=== PATIENT | male | born 1950 | race Caucasian/White ===

== ENCOUNTER 2021-05-12 15:05 | Inpatient (IN) ==
[2021-05-12] MEDS ORDERED: VANCOMYCIN 2,000 MG in 0.9 % SODIUM CHLORIDE 500 ML IV ONE (15:36)
[2021-05-12] MEDS ORDERED: PIPERACILLIN SODIUM/TAZOBACTAM 3.375 GM in DEXTROSE 5% IN WATER 50 ML IV ONE (15:36)
--- NOTE | 2021-05-12 15:55 | Emergency Department Note ---
Extremity Problem HPI General Chief complaint: Extremity Problem,Nontraumatic Stated complaint: cellulitis/foot ulcer Time Seen by Provider: 05/12/21 15:13 Source: patient and family Mode of arrival: wheelchair Limitations: no limitations History of Present Illness HPI Narrative: This is a 70-year-old male patient with early onset dementia and history of peripheral neuropathy and lower extremity cellulitis who presents with open and infected ulcerations of the bilateral feet. His sister is with him today who is his DPOA and helps fill in the gaps of his history. His primary care provider is Dr. Walker and they have been treating him with oral antibiotics for about 2 weeks when his symptoms started. He was initially on 5 days of Keflex and was switched to clindamycin. He developed a truncal rash about 4 days ago, but denies pruritus. He denies F/C/S. Denies nausea and vomiting. Denies shortness of breath. Patient moved here from [place] 2 years ago. He is mostly ambulatory and walks with a cane. His sister states that he was ambulating last night without issue. He is currently not on medications. Does not take Lasix. Does not routinely wear compression stockings. He is not a diabetic. She reports that the wound over the dorsal aspect first MTP on the right foot was not open last night. This morning when she looked at it the wound was clearly open and extending deep into the tissues. She noted that it smelled. She also states that the wound on his left foot at the base of the plantar aspect of the first MTP is chronic and that he frequently shaves it down. The wound on the dorsal surface of the left MTP is not new and they have been watching it. Related Data Allergies Allergy/AdvReac Type Severity Reaction Status Date / Time clindamycin Allergy Rash Verified 05/12/21 16:22 Review of Systems ROS ROS Narrative: Narrative: All systems ED: reviewed and negative except as stated. PFSH Narrative Patient History Narrative: Narrative: Medical/Surgical/Family History All Active Problems Ulcer of both feet (Acute) Social History Smoking Status: Former smoker Exam Narrative Narrative: General: AOx3, NAD, nontoxic appearing. Pleasant and conversant. HEENT: PERRL, EOMI, normocephalic. Moist mucous membranes. Normal facies Respiratory: Lungs clear to auscultation bilaterally. No respiratory distress. Unlabored breathing. Heart: Regular rate and rhythm, no murmurs/clicks/rubs. Abdomen: Non-tender, Non distended Extremities: Warm and well perfused. Right lower extremity erythema extends up to just below the knee circumferentially. There is 3+ pitting edema. There is a gaping deep ulceration noted to the dorsal aspect of the first MTP that is malodorous with purulent drainage. Tendon is not visualized. The dorsum of the foot has weeping edema. The right lower extremity is nonerythematous with chronic ulceration to the dorsal aspect of the right MTP with some granulation tissue. No drainage. There is a chronic ulceration noted to the plantar surface of the first MTP. DP 2+ bilaterally. Chronic venous stasis is noted. Neuro: No focal deficits. Cranial nerves II-XII normal. Skin: Warm dry, maculopapular rash noted to the trunk, nonpruritic. Psych: Normal mood and affect Heme/Lymph: No abnormal bruising General Limitations: no limitations Course Course Course Narrative: 70-year-old male presents with bilateral foot ulcerations and right lower extremity cellulitis, failed outpatient antibiotic treatment Reevaluation(s) Reevaluation #1: Obtain CBC, CMP, CRP Obtain wound cultures of the right MTP ulceration and the left MTP ulceration Obtain bilateral foot x-rays to query for osteomyelitis Start IV vancomycin and Zosyn I have called Dr. De Los Santos who would be happy to consult on the patient if admitted Reevaluation #2: CBC without leukocytosis. CRP is elevated at 6.40. X-ray of the right foot shows gas in the tissue, no evidence of osteomyelitis. X-ray of the left foot shows foreign body needle in the soft tissues; however, this is not new and the patient states that this was seen years back when he was diagnosed with cellulitis in the past. No osteomyelitis. Vital Signs Vital signs: Vital Signs Temperature 98.4 F 05/12/21 15:06 Pulse Rate 85 05/12/21 15:06 Respiratory Rate 17 05/12/21 15:06 Blood Pressure 158/107 05/12/21 15:06 Pulse Oximetry (%) 97 05/12/21 15:06 Temperature 98.4 F 05/12/21 15:06 Pulse Rate 76 05/12/21 18:00 Respiratory Rate 17 05/12/21 15:06 Blood Pressure 151/70 05/12/21 18:00 Pulse Oximetry (%) 98 05/12/21 18:00 MDM MDM Narrative Medical decision making narrative: Right lower extremity cellulitis, possible necrotizing fasciitis Right first MTP decubitus ulcer Drug eruption rash Patient has failed outpatient antibiotics. There is evidence of gas in the right foot tissue suggestive of possible necrotizing fasciitis. Wound cultures are pending. Suspect drug eruption rash to the trunk after clindamycin. Patient needs admission and surgical debridement of the wound. I have spoken with Dr. De Los Santos who agrees to consult for probable surgical debridement. Awaiting hospitalist for signout if beds are available. Hospitalist has accepted the patient for admission. Lab Data Result diagrams: 05/12/21 15:57 05/12/21 15:57 Labs: Lab Results 05/12/21 05/12/21 Range/Units 15:57 15:57 WBC 10.4 (4.5-11.0) K/mcL RBC 4.61 L (4.63-6.08) M/mcL Hgb 14.5 (13.7-17.5) g/dL Hct 43.4 (40.1-51.0) % MCV 94.1 (80.0-100.0) fL MCH 31.5 (26.0-34.0) pg MCHC 33.4 (31.0-36.0) g/dL RDW 13.2 (11.5-14.5) % Plt Count 352 (140-440) K/mcL MPV 9.2 (7.4-10.4) fL Seg Neutrophils % 72 (38-78) % Lymphocytes % 14 L (15-49) % Monocytes % (Manual) 11 (1-12) % Eosinophils % (Manual) 3 (0-7) % Platelet Estimate Normal (Normal) RBC Morphology Normal (Normal) Sodium 135 (133-145) mmol/L Potassium 3.8 (3.3-5.1) mmol/L Chloride 100 (96-108) mmol/L Carbon Dioxide 23 (22-30) mmol/L Anion Gap 12.0 (8.0-16.0) BUN 24 H (8-23) mg/dL Creatinine 1.2 (0.7-1.2) mg/dL GFR Calculation 62 Glucose 93 (70-105) mg/dL Calcium 8.7 (8.6-10.4) mg/dL Total Bilirubin 0.6 (0.1-1.0) mg/dL AST 19 (<40) U/L ALT 18 (<40) U/L Alkaline Phosphatase 32 L (39-117) U/L C-Reactive Protein 6.50 H (0.03-0.80) mg/dL Total Protein 7.7 (5.9-8.4) gm/dL Albumin 2.4 L (3.2-5.2) gm/dL Globulin 5.3 H (2.2-3.7) gm/dL Albumin/Globulin Ratio 0.5 L (1.0-2.3) ED POC Tests ED POC Tests: TOBIN - SARS Antigen Negative Discharge Plan Patient/Caregiver Discharge Instructions Pt seen by [facility]/PA only: Yes Patient Disposition: Xfer As Inpt ([facility]) Condition: Fair Follow up with: Emmanuel Gonzalez [Physician] - Nicolás Walker MD [Primary Care Provider] -
--- NOTE | 2021-05-12 16:13 | XRay Report ---
INDICATION: r/o osteo TECHNIQUE: AP, oblique, lateral bilateral feet COMPARISON: None. FINDINGS: Left foot: Mild diffuse soft tissue swelling. There is a metallic needle within the soft tissues of the left foot. This is between the first and second metatarsals. There is mild vascular calcification consistent with diabetes. Patient apparently denies a history of diabetes. There is no soft tissue gas. There is no cortical destruction. No plain film evidence for osteomyelitis. There are hammertoe deformities of the left second through fifth digits Right foot: There is diffuse soft tissue swelling, right worse than left. There is soft tissue gas in the dorsal soft tissues of the right midfoot. Appearance is consistent with infection from gas-forming organism. No focal bone destruction. No plain film evidence for osteomyelitis. There are hammertoe deformities of the right second through fifth digits IMPRESSION: 1. Generalized soft tissue swelling in the right foot. There is soft tissue gas are consistent with infection from gas-forming organism 2. Mild soft tissue swelling in the left foot. There is a metallic foreign body consistent with a needle. This is in the soft tissues between the left first and second metatarsals 3. No plain film evidence for osteomyelitis Interpreted and Authenticated by: Kam Bland 05/12/21
[2021-05-12 16:26] LABS: Hematocrit 43.4 % (40.1-51.0); Hemoglobin 14.5 g/dL (13.7-17.5); Mean Cell Volume 94.1 fL (80.0-100.0); Mean Corpuscular HGB Conc 33.4 g/dL (31.0-36.0); Mean Platelet Volume 9.2 fL (7.4-10.4); Platelet Count 352 K/mcL (140-440); RBC 4.61 M/mcL (4.63-6.08); Red Cell Distribution Width 13.2 % (11.5-14.5); WBC 10.4 K/mcL (4.5-11.0)
[2021-05-12 16:54] LABS: ALT/SGPT 18 U/L (<40); AST/SGOT 19 U/L (<40); Albumin 2.4 gm/dL (3.2-5.2); Albumin/Globulin Ratio 0.5 (1.0-2.3); Alkaline Phosphatase 32 U/L (39-117); Bilirubin,Total 0.6 mg/dL (0.1-1.0); Blood Urea Nitrogen 24 mg/dL (8-23); Calcium 8.7 mg/dL (8.6-10.4); Carbon Dioxide 23 mmol/L (22-30); Chloride 100 mmol/L (96-108); Globulin 5.3 gm/dL (2.2-3.7); Glomerular Filtration Rate 62; Glucose 93 mg/dL (70-105)
[2021-05-12 16:59] LABS: Eosinophils % (Manual) 3 % (0-7); Lymphocytes % 14 % (15-49); Monocytes % (Manual) 11 % (1-12); Platelet Estimate NORMAL (Normal); RBC Morphology NORMAL (Normal); Segmented Neutrophils % 72 % (38-78)
--- NOTE | 2021-05-12 18:27 | Internal Med History&Physical ---
HPI History of Present Illness Patient information: Note initiated : 05/12/21 at 6:20 pm Service Date, if different from initiated Date: [] Patient: Sky Rivas a 70 y/o M admitted on for cellulitis/foot ulcer. Chief Complaint: [] History of present illness: Mr. Rvias is a 70 year old M medical history presenting with bilateral feet ulcer. He stated he has chronic feet ulcer per day progressively get worse over the past couple of days. He was being prescribed of oral antibiotics 2 weeks ago Keflex and clindamycin. His right asked him to come to the ER today for further evaluations due to none improving nature of his episode. He denies having any pain in his feet. He denies having any fever or chills. He denies any general body weakness. He denies any other systemic symptoms. Vital signs at ER presentation within normal omits. Labs were also largely within normal limits. Bilateral feet x-ray showing soft tissue swelling with no signs of osteomyelitis. Constitutional Constitutional: Absent chills, excessive sweating, fatigue, fever(s) and weakness EENT Eyes: Absent blurry vision, change in vision, loss of vision and other visual disturbances Ears: Absent decreased hearing and tinnitus Nose, mouth and throat: Absent abnormal hearing, dry mouth, headache(s), nasal congestion and sore throat Cardiovascular Cardiovascular: Absent chest pain, chest pain at rest, edema, irregular heart rhythm and palpatations Respiratory Respiratory: Absent cough, dyspnea and wheezing Gastrointestinal Gastrointestinal: Absent abdominal pain, constipation, diarrhea, nausea and vomiting Musculoskeletal Musculoskeletal: Absent back pain, deformity, limited range of motion, muscle cramps, muscle weakness and numbness Integumentary Integumentary: Present lesions and wounds; Absent rash Additional comments: dry feet Neurological Neurological: Absent focal weakness, headache(s) and numbness Psychiatric Psychiatric: Absent anxiety, depression and hallucinations PFSH PFSH All Active Problems (Updated 05/12/21 @ 18:36 by Wenceslao Trevizo MD) Ulcer of both feet (Acute) MEDS/ALLERGIES Home Medications and Allergies Allergies Allergy/AdvReac Type Severity Reaction Status Date / Time clindamycin Allergy Rash Verified 05/12/21 16:22 EXAM Constitutional Vitals: Temp Pulse Resp BP Pulse Ox 36.9 C 70 17 151/98 99 05/12/21 15:06 05/12/21 17:15 05/12/21 15:06 05/12/21 17:15 05/12/21 17:15 General appearance: cooperative and no acute distress Head Head exam: Present atraumatic and normocephalic Eye Eye exam: Present EOMI and PERRL ENT ENT exam: Present mucous membranes moist, normal exam and normal external ear exam Neck Neck exam: Present normal inspection; Absent lymphadenopathy, tenderness and thyromegaly Respiratory Respiratory exam: Absent accessory muscle use, respiratory distress and wheezes Cardiovascular Cardiovascular exam: Present normal rate and rhythm; Absent JVD GI/Abdominal GI/Abdominal exam: Present normal bowel sounds and soft; Absent organomegaly and tenderness Rectal Rectal exam: Present deferred Extremities Exam Extremities exam: Present full ROM, normal capillary refill and normal inspection; Absent tenderness Neurological Exam Neurological exam: Present alert, CN II-XII intact and oriented X3; Absent motor sensory deficit Psychiatric Psychiatric exam: Present normal affect and normal mood; Absent anxious and depressed Skin Skin exam: Present dry; Absent intact Additional comments: multiple ulcers including dorsal aspect of bilateral great toe base measuring up to 1 inch X 1 inch DATA Data Completed and Pending Labs: Labs from last 24 hours 05/12/21 05/12/21 15:57 15:57 WBC 10.4 RBC 4.61 L Hgb 14.5 Hct 43.4 MCV 94.1 MCH 31.5 MCHC 33.4 RDW 13.2 Plt Count 352 MPV 9.2 Seg Neutrophils % 72 Lymphocytes % 14 L Monocytes % (Manual) 11 Eosinophils % (Manual) 3 Platelet Estimate Normal RBC Morphology Normal Sodium 135 Potassium 3.8 Chloride 100 Carbon Dioxide 23 Anion Gap 12.0 BUN 24 H Creatinine 1.2 GFR Calculation 62 Glucose 93 Calcium 8.7 Total Bilirubin 0.6 AST 19 ALT 18 Alkaline Phosphatase 32 L C-Reactive Protein 6.50 H Total Protein 7.7 Albumin 2.4 L Globulin 5.3 H Albumin/Globulin Ratio 0.5 L A/P Assessment and plan (1) Ulcer of both feet: Status: Acute Narrative A/P Narrative: Assessment and Plans: 1. Ulcers of both feet failed outpatient oral antibiotics (Clindamycin and Keflex) treatment: Admit to inpatient med surg for IV antibiotics treatment as well as surgical consultation Dr. Randoplh consulted, resc. appreciated Vancomycin Zosyn Lactic acid Blood culture Wound culture cbc w/ auto diff in the morning to trend WBC Tylenol PRN fever Oxycodone PRN moderate pain Morphine IV PRN severe pain GI ppx: not currently indicated DVT ppx: SCDs Code status: Full Prognosis: stable Disposition: inpatient med surg Time Spent With Patient Time: Total time spent is greater than 50% in coordination of care (as documented) at patient's floor/unit and/or counseling patient: Total time spent with greater than 50% in coordination of care (as documented) at patient's floor/unit and/or counseling patient:: 25 - 35 minutes
--- NOTE | 2021-05-12 19:06 | General Surgery Consult Note ---
HPI Data of Consult Consult date: 05/12/21 Requesting physician: Wenceslao Trevizo Primary Care Provider: Nicolás Walker Consult Narrative Patient Information: Note initiated : 05/12/21 at 6:52 pm Service Date, if different from initiated Date: [] Patient: Sky Rivas 70 y/o M admitted on for cellulitis/foot ulcer. Chief Complaint: [] Reason for consult: Chronic open wounds both feet. Failed out patient treatment, SEPSIS ? cc:: I saw this patient in ER. Reviewed his history and examined patient. Will be following him in hospital. PFSH PFSH All Active Problems Ulcer of both feet (Acute) MEDS/ALLERGIES Home Medications and Allergies Home Medications Medication Instructions Recorded Confirmed Type No Known Home Meds 05/13/21 05/13/21 History Allergies Allergy/AdvReac Type Severity Reaction Status Date / Time clindamycin Allergy Rash Verified 05/12/21 16:22 Physical Examination Vital Signs Vital signs: Temp Pulse Resp BP Pulse Ox 98.4 F 76 17 151/70 98 05/12/21 15:06 05/12/21 18:00 05/12/21 15:06 05/12/21 18:00 05/12/21 18:00 General physical appearance General physical exam: well developed, well nourished, no distress and no pain Eyes Eye exam: PERRL and normal ocular movement ENT ENT exam: normal pinna, normal mucosa and no congestion Head Head exam IM: Present atraumatic and normocephalic Neck Neck exam: no masses, no lymphadenopathy and no venous distension Cardiovascular Cardiovascular exam IM: Present normal rate and rhythm Respiratory Respiratory exam: normal respiratory effort and clear to auscultation Abdomen Abdomen: Present soft, non tender and bowel sounds Integumentary Integumentary: Present other (CHRONIC dry scales dermatitis of both feet, fissures and deep ulcers. OPEN wound RIGHT foot 1st interdigital space with hemoserous collection and odor. Chronically inflammed. X Ray ??? FB) Neurologic Neurologic: Present other (?? Peripheral neuropathy. Moves all extremtieis. Walks barefooted. ) Musculoskeletal Musculoskeletal: Present other (Moves all extremties. Did NOT examine him standing or ambulating.) Psychiatric Psychiatric: Present other (Flat affect. Answers simple Qs. NOT in pain. DEMENTIA ?? ) Results Labs Result diagrams: 05/13/21 05:06 05/13/21 05:06 Labs: Abnormal lab results 05/12/21 05/12/21 Range/Units 15:57 15:57 RBC 4.61 L (4.63-6.08) M/mcL Lymphocytes % 14 L (15-49) % BUN 24 H (8-23) mg/dL Alkaline Phosphatase 32 L (39-117) U/L C-Reactive Protein 6.50 H (0.03-0.80) mg/dL Albumin 2.4 L (3.2-5.2) gm/dL Globulin 5.3 H (2.2-3.7) gm/dL Albumin/Globulin Ratio 0.5 L (1.0-2.3) Diabetes panel 05/12/21 Range/Units 15:57 Sodium 135 (133-145) mmol/L Potassium 3.8 (3.3-5.1) mmol/L Chloride 100 (96-108) mmol/L Carbon Dioxide 23 (22-30) mmol/L BUN 24 H (8-23) mg/dL Creatinine 1.2 (0.7-1.2) mg/dL Glucose 93 (70-105) mg/dL Calcium 8.7 (8.6-10.4) mg/dL AST 19 (<40) U/L ALT 18 (<40) U/L Alkaline Phosphatase 32 L (39-117) U/L Total Protein 7.7 (5.9-8.4) gm/dL Albumin 2.4 L (3.2-5.2) gm/dL Calcium panel 05/12/21 Range/Units 15:57 Calcium 8.7 (8.6-10.4) mg/dL Albumin 2.4 L (3.2-5.2) gm/dL Pituitary panel 05/12/21 Range/Units 15:57 Sodium 135 (133-145) mmol/L Potassium 3.8 (3.3-5.1) mmol/L Chloride 100 (96-108) mmol/L Carbon Dioxide 23 (22-30) mmol/L BUN 24 H (8-23) mg/dL Creatinine 1.2 (0.7-1.2) mg/dL Glucose 93 (70-105) mg/dL Calcium 8.7 (8.6-10.4) mg/dL Adrenal panel 05/12/21 Range/Units 15:57 Sodium 135 (133-145) mmol/L Potassium 3.8 (3.3-5.1) mmol/L Chloride 100 (96-108) mmol/L Carbon Dioxide 23 (22-30) mmol/L BUN 24 H (8-23) mg/dL Creatinine 1.2 (0.7-1.2) mg/dL Glucose 93 (70-105) mg/dL Calcium 8.7 (8.6-10.4) mg/dL Total Bilirubin 0.6 (0.1-1.0) mg/dL AST 19 (<40) U/L ALT 18 (<40) U/L Alkaline Phosphatase 32 L (39-117) U/L Total Protein 7.7 (5.9-8.4) gm/dL Albumin 2.4 L (3.2-5.2) gm/dL All other labs normal. A/P Narrative A/P Narrative: Assessment: Chronic Dermatitis both feet. Fissures / Ulcers plantar and around heels. Open wound between RIGHT 1/2 toes (abscess vs old hematoma with seroma ) Plan: Wound was cleaned with Betadine and saline Packed open with Xeroform gauze and reinforced Gauze / Kerlix and Coban. Will reassess again in AM Further recommendations to follow Agree with empiric IV antibiotics started. Will keep NPO after MN Plan of care discussed with nursing staff and Hospitalist Physician. Time Spent With Patient Time: Total time spent is greater than 50% in coordination of care (as documented) at patient's floor/unit and/or counseling patient:
[2021-05-12] MEDS ORDERED: morphine 4 MG/ML VIAL IV PRN (19:51)
[2021-05-12] MEDS ORDERED: VANCOMYCIN PER PHARMACY IV SCH (19:51)
[2021-05-12] MEDS ORDERED: ONDANSETRON 4 MG/2 ML VIAL IV PRN (19:51)
[2021-05-12] MEDS: 0.9 % SODIUM CHLORIDE 1,000 ML IV SCH (19:54)
[2021-05-12] MEDS: ACETAMINOPHEN 325 MG TABLET PO PRN (21:08)
[2021-05-12] MEDS: DOCUSATE SODIUM 100 MG CAPSULE PO SCH (21:09)
[2021-05-12] MEDS: ZOLPIDEM 5 MG TABLET PO PRN (21:09)
[2021-05-12] MEDS: 0.9 % SODIUM CHLORIDE 10 ML SYRINGE IV SCH (21:10)
[2021-05-12] MEDS: SENNOSIDES 1 TABLET PO SCH (21:10)
[2021-05-13] MEDS: PIPERACILLIN SODIUM/TAZOBACTAM 3.375 GM in DEXTROSE 5% IN WATER 50 ML IV SCH ×5 (00:14→23:48)
[2021-05-13] MEDS: 0.9 % SODIUM CHLORIDE 10 ML SYRINGE IV SCH ×3 (05:41→20:27)
[2021-05-13] MEDS: 0.9 % SODIUM CHLORIDE 1,000 ML IV SCH (07:16)
[2021-05-13 07:17] LABS: Basophils # (Auto) 0.08 K/mcL (0.00-0.30); Basophils % (Auto) 0.8 % (0.0-2.0); Eosinophils # (Auto) 0.21 K/mcL (0.00-0.70); Eosinophils % (Auto) 2.2 % (0.0-7.0); Hematocrit 39.6 % (40.1-51.0); Lymphocytes # (Auto) 1.05 K/mcL (1.50-4.80); Lymphocytes % (Auto) 11.1 % (15.5-49.0); Mean Cell Volume 95.9 fL (80.0-100.0); Mean Corpuscular HGB Conc 32.8 g/dL (31.0-36.0); Mean Platelet Volume 9.4 fL (7.4-10.4); Monocytes # (Auto) 0.98 K/mcL (0.10-0.90); Monocytes % (Auto) 10.3 % (1.0-12.0); Neutrophils % (Auto) 75.6 % (38.0-78.0); Platelet Count 340 K/mcL (140-440); RBC 4.13 M/mcL (4.63-6.08); Red Cell Distribution Width 13.2 % (11.5-14.5); WBC 9.5 K/mcL (4.5-11.0)
[2021-05-13 07:52] LABS: Blood Urea Nitrogen 18 mg/dL (8-23); Carbon Dioxide 21 mmol/L (22-30); Chloride 102 mmol/L (96-108); Glomerular Filtration Rate 77; Glucose 85 mg/dL (70-105)
--- NOTE | 2021-05-13 08:56 | General Surgery Progress Note ---
SUBJECTIVE Subjective Patient information: Note initiated : 05/13/21 at 8:48 am Service Date, if different from initiated Date: [] Patient: Sky Rivas 70 y/o M admitted on 05/12/21 for cellulitis/foot ulcer. Chief Complaint: [] Additional PMFSH (Level 3 Only): Patient seen with Jake Vogt RN and discussed with ICU nurse and Hospitalist Physician. Patient had an uneventful nigh. Blood staining on plantar aspect of RIGHT foot dressing, NEEDS Or debridement of wounds of both feet, heels, cultures and open packing. Constitutional Vitals: Vital Signs Temp Pulse Resp BP Pulse Ox 98.4 F 66 16 148/91 94 05/13/21 07:20 05/13/21 07:20 05/13/21 07:20 05/13/21 07:20 05/13/21 07:20 Period Temp Pulse Resp BP Sys/Barry Pulse Ox Last 24 Hr 98.4 F-99.2 F 66-85 16-20 111-175/70-112 94-100 Intake and Output 05/12/21 05/13/21 05/13/21 21:59 05:59 13:59 Intake Total 550 1290 50 Output Total 350 Balance 550 940 50 Weight 267 lb 3 oz Intake & Output: Intake & Output 05/12/21 05/13/21 05/13/21 21:59 05:59 13:59 Intake Total 550 1290 50 Output Total 350 Balance 550 940 50 Weight 267 lb 3 oz Intake: IV 550 1050 50 Sodium Chloride 0.9% 1,000 ml @ 1000 100 mls/hr IV .Q10H [facility] Rx#: [id number] Zosyn 3.375 gm In Dextrose 5% 50 50 50 in Water 50 ml @ 100 mls/hr IV Q6H [facility] Rx#:[id number] Vancomycin 2,000 mg In Sodium 500 Chloride 0.9% 500 ml @ 250 mls/ hr IV ONCE ONE Rx#:[id number] Oral 240 Output: Void Amount 350 Other: Urine Appearance Clear Urine Color Dark Yellow Exam: AVSS. No changes in VIOLETA. Lab results reviewed and X-Rays seen Dressing over RIGHT foot is intact. Blood stain on plantar aspect. Needs OR debridement, cultures and biopsies with open packing. There is questionable opacity between RIGHT 1-2 toes at site of wound. Patient tells me that this has been present for a long time. He walks barefooted most of the time. A/P Narrative A/P Narrative: Assessment: No overnite events. Uneventful progress Plan: Debridement of both feet and ankle wounds. Tissue c/s / biopsies Open packing. Further recommendations as condition evolves. Time Spent With Patient Time: Total time spent is greater than 50% in coordination of care (as documented) at patient's floor/unit and/or counseling patient: Total time spent with greater than 50% in coordination of care (as documented) at patient's floor/unit and/or counseling patient:: 15 - 24 minutes
--- NOTE | 2021-05-13 09:10 | Internal Med Progress Note ---
SUBJECTIVE Subjective Patient information: Note initiated : 05/13/21 at 9:07 am Service Date, if different from initiated Date: [] Patient: Sky Rivas 70 y/o M admitted on 05/12/21 for cellulitis/foot ulcer. Chief Complaint: [Bilateral feet ulcers] Interval history: History of present illness: Mr. Rivas is a 70 year old M medical history presenting with bilateral feet ulcer. He stated he has chronic feet ulcer per day progressively get worse over the past couple of days. He was being prescribed of oral antibiotics 2 weeks ago Keflex and clindamycin. His right asked him to come to the ER today for further evaluations due to none impr oving nature of his episode. He denies having any pain in his feet. He denies having any fever or chills. He denies any general body weakness. He denies any other systemic symptoms. Vital signs at ER presentation within normal omits. Labs were also largely within normal limits. Bilateral feet x-ray showing soft tissue swelling with no signs of osteomyelitis. 05/13: Afebrile overnight. Blood and wound culture no growth to date. Patient denies any fever or chills. Patient denies any feet pain. Patient otherwise has no other complaints. There was no other major overnight events. Constitutional Vitals: Vital Signs Temp Pulse Resp BP Pulse Ox 36.9 C 66 16 148/91 94 05/13/21 07:20 05/13/21 07:20 05/13/21 07:20 05/13/21 07:20 05/13/21 07:20 Period Temp Pulse Resp BP Sys/Barry Pulse Ox Last 24 Hr 36.9 C-37.3 C 66-85 16-20 111-175/70-112 94-100 Intake and Output 05/12/21 05/13/21 05/13/21 21:59 05:59 13:59 Intake Total 550 1290 50 Output Total 350 Balance 550 940 50 Weight 121.194 kg Intake & Output: Intake & Output 05/12/21 05/13/21 05/13/21 21:59 05:59 13:59 Intake Total 550 1290 50 Output Total 350 Balance 550 940 50 Weight 121.194 kg Intake: IV 550 1050 50 Sodium Chloride 0.9% 1,000 ml @ 1000 100 mls/hr IV .Q10H [facility] Rx#: [id number] Zosyn 3.375 gm In Dextrose 5% 50 50 50 in Water 50 ml @ 100 mls/hr IV Q6H [facility] Rx#:[id number] Vancomycin 2,000 mg In Sodium 500 Chloride 0.9% 500 ml @ 250 mls/ hr IV ONCE ONE Rx#:[id number] Oral 240 Output: Void Amount 350 Other: Urine Appearance Clear Urine Color Dark Yellow General appearance: cooperative and no acute distress Head Head exam: Present atraumatic and normocephalic Eye Eye exam: Present EOMI and PERRL ENT ENT exam: Present mucous membranes moist, normal exam and normal external ear exam Neck Neck exam: Present normal inspection; Absent lymphadenopathy, tenderness and thy romegaly Respiratory Respiratory exam: Absent accessory muscle use, respiratory distress and wheezes Cardiovascular Cardiovascular exam: Present normal rate and rhythm; Absent JVD GI/Abdominal GI/Abdominal exam: Present normal bowel sounds and soft; Absent organomegaly and tenderness Rectal Rectal exam: Present deferred Extremities Exam Extremities exam: Present full ROM, normal capillary refill and pedal edema; Absent normal inspection and tenderness Additional comments: Ulcers of bilateral feet, largest one measuring 1x1 inch on right great toe dorsal base Neurological Exam Neurological exam: Present alert, CN II-XII intact and oriented X3; Absent motor sensory deficit Psychiatric Psychiatric exam: Present normal affect and normal mood; Absent anxious and depressed Skin Skin exam: Present dry, erythema and warm; Absent intact Additional comments: Ulcers of bilateral feet, largest one measuring 1x1 inch on right great toe dorsal base OBJ DATA Labs CBC & Chem 7: 05/13/21 05:06 05/13/21 05:06 Labs: Abnormal Lab Results 05/13/21 05/13/21 05/12/21 05:06 05:06 15:57 RBC 4.13 L Hgb 13.0 L Hct 39.6 L Lymph % (Auto) 11.1 L Lymph # (Auto) 1.05 L [place] # (Auto) 0.98 H Lymphocytes % Carbon Dioxide 21 L BUN 24 H Calcium 8.0 L Alkaline Phosphatase 32 L C-Reactive Protein 6.50 H Albumin 2.4 L Globulin 5.3 H Albumin/Globulin Ratio 0.5 L 05/12/21 15:57 RBC 4.61 L Hgb Hct Lymph % (Auto) Lymph # (Auto) [place] # (Auto) Lymphocytes % 14 L Carbon Dioxide BUN Calcium Alkaline Phosphatase C-Reactive Protein Albumin Globulin Albumin/Globulin Ratio Meds: Medications Acetaminophen (Acetaminophen 325 Mg Tablet) 650 mg PO Q6HP PRN; Protocol PRN Reason: Per Pain Protocol/Fever > 101 Last Admin: 05/12/21 21:08 Dose: 650 mg Documented by: Docusate Sodium (Docusate Sodium 100 Mg Capsule) 100 mg PO BID [facility] Last Admin: 05/12/21 21:09 Dose: 100 mg Documented by: Sodium Chloride (Sodium Chloride 0.9%) 1,000 mls @ 100 mls/hr IV .Q10H [facility] Last Admin: 05/13/21 07:16 Dose: 100 mls/hr Documented by: Piperacillin Sod/Tazobactam (Sod 3.375 gm/ Dextrose) 50 mls @ 100 mls/hr IV Q6H [facility]; Protocol Last Infusion: 05/13/21 06:10 Dose: Infused Documented by: Vancomycin HCl 1,500 mg/ (Sodium Chloride) 500 mls @ 333.3 mls/hr IV Q12H [facility] Morphine Sulfate (Morphine 4 Mg/Ml Vial) 4 mg IV Q4HP PRN; Protocol PRN Reason: Per Pain Protocol Ondansetron HCl (Ondansetron 4 Mg/2 Ml Vial) 4 mg IV Q6HP PRN PRN Reason: Nausea And Vomiting Oxycodone HCl (Oxycodone Hcl 5 Mg Tablet) 5 mg PO Q4HP PRN; Protocol PRN Reason: Per Pain Protocol Senna (Sennosides 1 Tablet) 2 tab PO HS [facility] Last Admin: 05/12/21 21:10 Dose: 2 tab Documented by: Sodium Chloride (0.9 % Sodium Chloride 10 Ml Syringe) 10 ml IV Q8 [facility] Last Admin: 05/13/21 05:41 Dose: 10 ml Documented by: Vancomycin HCl (Vancomycin Per Pharmacy) 1 order IV UD [facility]; Protocol Zolpidem Tartrate (Zolpidem 5 Mg Tablet) 5 mg PO HSP PRN PRN Reason: Insomnia Last Admin: 05/12/21 21:09 Dose: 5 mg Documented by: A/P Assessment and plan (1) Ulcer of both feet: Status: Acute Narrative A/P Narrative: Assessment and Plans: 1. Ulcers of both feet failed outpatient oral antibiotics (Clindamycin and Keflex) treatment: Stays in inpatient med surg for IV antibiotics treatment as well as surgical consultation Dr. Randolph consulted, resc. appreciated NPO for now for wound clearing/debridement Vancomycin Zosyn Lactic acid Blood culture, no growth to date Wound culture, no growth to date cbc w/ auto diff in the morning to trend WBC Tylenol PRN fever Oxycodone PRN moderate pain Morphine IV PRN severe pain GI ppx: not currently indicated DVT ppx: SCDs Code status: Full Prognosis: stable Disposition: inpatient med surg Time Spent With Patient Time: Total time spent is greater than 50% in coordination of care (as documented) at patient's floor/unit and/or counseling patient:
[2021-05-13] MEDS: VANCOMYCIN 1,500 MG in 0.9 % SODIUM CHLORIDE 500 ML IV SCH ×2 (09:45→20:26)
[2021-05-13] MEDS ORDERED: DEXAMETHASONE 10 MG/ML VIAL ONE (10:24)
[2021-05-13] MEDS ORDERED: GLYCOPYRROLATE 0.2 MG/ML VIAL IV ONE (10:24)
[2021-05-13] MEDS ORDERED: PROPOFOL 200 MG/20 ML VIAL IV ONE (10:24)
[2021-05-13] MEDS ORDERED: LIDOCAINE HCL/PF 100 MG/5 ML SYRINGE IV ONE (10:24)
[2021-05-13] MEDS ORDERED: KETAMINE 50 MG/ML Syringe (ANEST) IV ONE (10:24)
[2021-05-13] MEDS ORDERED: MIDAZOLAM 2 MG/2 ML VIAL ONE (10:24)
[2021-05-13] MEDS ORDERED: ONDANSETRON 4 MG/2 ML VIAL ONE (10:24)
[2021-05-13] MEDS ORDERED: BUPIVACAINE 0.5% 50 ML VIAL IJ ONE (11:16)
[2021-05-13] MEDS ORDERED: GENTAMICIN SULFATE 800 MG/20 ML VIAL IR ONE (11:16)
[2021-05-13] MEDS ORDERED: fentaNYL 100 MCG/2 ML VIAL IV PRN (11:17)
[2021-05-13] MEDS ORDERED: MEPERIDINE 25 MG/ML VIAL IV PRN (11:17)
[2021-05-13] MEDS ORDERED: ONDANSETRON 4 MG/2 ML VIAL IV PRN (11:17)
[2021-05-13] MEDS ORDERED: IPRATROPIUM/ALBUTEROL 3 ML AMPUL.NEB NEB PRN (11:17)
[2021-05-13] MEDS ORDERED: LACTATED RINGERS 1,000 ML IV SCH ×2 (11:30→12:00)
--- NOTE | 2021-05-13 11:41 | Brief Operative Note ---
Brief Operative Note Date of procedure: 05/13/21 Pre-op diagnosis: SEPSIS. CSSSI both fore feet. and between 1-2 toes. Post-op diagnosis: same Procedure: Excision Debridement RIGHT foot, and LEFT foot between 1-2 toes. Grafts/Implants: No Anesthesia: GLMA Findings: Stage 4 wound Necrotic tendons, skin, adipose tissue and thrombosed blood vessels. RIGHT foot Stage 4 wound Dorsal surface LEFT foot between 1-2 toes. Dimensions: RIGHT foot dorsal surface 15 x 6 CM Undermining 2 CM @3; 8 CM @9 and 3 CM @ 12 O'clock Dimensions: LEFT foot 5 CM x 4 CM x 2 CM Complications: none Surgeon: Jim Randolph Estimated blood loss (cc): 40 Specimens Removed/Pathology: other (LEFT and RIGHT foot tissue for c/s Pathology / Histology RIGHT foot necrotic tissue (Skin, sub Q, tendon and blood vessel )) Condition: stable Disposition: PACU
[2021-05-13] MEDS: DOCUSATE SODIUM 100 MG CAPSULE PO SCH ×2 (11:48→20:27)
[2021-05-13] MEDS ORDERED: ACETAMINOPHEN 650 MG/65 ML BAG IV PRN (11:53)
[2021-05-13] MEDS ORDERED: 0.9 % SODIUM CHLORIDE 1,000 ML IV SCH (13:27)
--- NOTE | 2021-05-13 13:27 | Internal Med Progress Note ---
SUBJECTIVE Subjective Patient information: Note initiated : 05/13/21 at 1:24 pm Service Date, if different from initiated Date: [] Patient: Sky Rivas 70 y/o M admitted on 05/12/21 for cellulitis/foot ulcer. Chief Complaint: [] Interval history: History of present illness: Mr. Rivas is a 70 year old M medical history presenting with bilateral feet ulcer. He stated he has chronic feet ulcer per day progressively get worse over the past couple of days. He was being prescribed of oral antibiotics 2 weeks ago Keflex and clindamycin. His r ight asked him to come to the ER today for further evaluations due to none improving nature of his episode. He denies having any pain in his feet. He denies having any fever or chills. He denies any general body weakness. He denies any other systemic symptoms. Vital signs at ER presentation within normal omits. Labs were also largely within normal limits. Bilateral feet x- ray showing soft tissue swelling with no signs of osteomyelitis. 05/13: Afebrile overnight. Blood and wound culture no growth to date. Patient denies any fever or chills. Patient denies any feet pain. Patient otherwise has no other complaints. There was no other major overnight events. 05/14 Constitutional Vitals: Vital Signs Temp Pulse Resp BP Pulse Ox 98.4 F 76 19 157/102 95 05/13/21 07:20 05/13/21 11:50 05/13/21 11:50 05/13/21 11:50 05/13/21 11:50 Period Temp Pulse Resp BP Sys/Barry Pulse Ox Last 24 Hr 98.4 F-99.2 F 66-85 15-27 111-175/70-112 94-100 Intake and Output 05/12/21 05/13/21 05/13/21 21:59 05:59 13:59 Intake Total 550 1290 1250 Output Total 350 500 Balance 550 940 750 Weight 121.194 kg Intake & Output: Intake & Output 05/12/21 05/13/21 05/13/21 21:59 05:59 13:59 Intake Total 550 1290 1250 Output Total 350 500 Balance 550 940 750 Weight 121.194 kg Intake: IV 550 1050 550 Sodium Chloride 0.9% 1,000 ml @ 1000 100 mls/hr IV .Q10H [facility] Rx#: [id number] Zosyn 3.375 gm In Dextrose 5% 50 50 50 in Water 50 ml @ 100 mls/hr IV Q6H [facility] Rx#:[id number] Vancomycin 1,500 mg In Sodium 500 500 Chloride 0.9% 500 ml @ 333.3 mls/hr IV Q12H [facility] Rx#: [id number] Oral 240 IV - Manual Only 700 Output: Void Amount 350 500 Other: Urine Appearance Clear Clear Urine Color Dark Yellow Dark Yellow Exam: General: Alert, Awake, No acute Distress Eyes/N/T: EOMI, Head/Neck: neck supple, CV: RRR, No murmurs, Pulm: Clear b/l, no wheezing/rhonchi/rales Abd: soft, nontender, +BS x4 Ext: no clubbing/cyanosis/edema Neuro: Alert, no focal deficits, moves all extremities, Skin: warm/dry OBJ DATA Labs CBC & Chem 7: 05/13/21 05:06 05/13/21 05:06 Labs: Abnormal Lab Results 05/13/21 05/13/21 05/12/21 05:06 05:06 15:57 RBC 4.13 L Hgb 13.0 L Hct 39.6 L Lymph % (Auto) 11.1 L Lymph # (Auto) 1.05 L [place] # (Auto) 0.98 H Lymphocytes % Carbon Dioxide 21 L BUN 24 H Calcium 8.0 L Alkaline Phosphatase 32 L C-Reactive Protein 6.50 H Albumin 2.4 L Globulin 5.3 H Albumin/Globulin Ratio 0.5 L 05/12/21 15:57 RBC 4.61 L Hgb Hct Lymph % (Auto) Lymph # (Auto) [place] # (Auto) Lymphocytes % 14 L Carbon Dioxide BUN Calcium Alkaline Phosphatase C-Reactive Protein Albumin Globulin Albumin/Globulin Ratio Meds: Medications Acetaminophen (Acetaminophen 325 Mg Tablet) 650 mg PO Q6HP PRN; Protocol PRN Reason: Per Pain Protocol/Fever > 101 Last Admin: 05/12/21 21:08 Dose: 650 mg Documented by: Docusate Sodium (Docusate Sodium 100 Mg Capsule) 100 mg PO BID [facility] Last Admin: 05/13/21 11:48 Dose: Not Given Documented by: Sodium Chloride (Sodium Chloride 0.9%) 1,000 mls @ 100 mls/hr IV .Q10H [facility] Last Admin: 05/13/21 07:16 Dose: 100 mls/hr Documented by: Piperacillin Sod/Tazobactam (Sod 3.375 gm/ Dextrose) 50 mls @ 100 mls/hr IV Q6H [facility]; Protocol Last Admin: 05/13/21 13:13 Dose: 100 mls/hr Documented by: Vancomycin HCl 1,500 mg/ (Sodium Chloride) 500 mls @ 333.3 mls/hr IV Q12H [facility] Last Infusion: 05/13/21 11:16 Dose: Infused Documented by: Lactated Ringer's (Lactated Ringers) 1,000 mls @ 75 mls/hr IV .[id number] [facility] Acetaminophen (Ofirmev) 650 mg in 65 mls @ 130 mls/hr IV Q6HP PRN; Protocol PRN Reason: Per Pain Protocol/Fever > 101 Morphine Sulfate (Morphine 4 Mg/Ml Vial) 4 mg IV Q4HP PRN; Protocol PRN Reason: Per Pain Protocol Ondansetron HCl (Ondansetron 4 Mg/2 Ml Vial) 4 mg IV Q6HP PRN PRN Reason: Nausea And Vomiting Oxycodone HCl (Oxycodone Hcl 5 Mg Tablet) 5 mg PO Q4HP PRN; Protocol PRN Reason: Per Pain Protocol Senna (Sennosides 1 Tablet) 2 tab PO [facility] Last Admin: 05/12/21 21:10 Dose: 2 tab Documented by: Sodium Chloride (0.9 % Sodium Chloride 10 Ml Syringe) 10 ml IV Q8 [facility] Last Admin: 05/13/21 05:41 Dose: 10 ml Documented by: Sodium Chloride (0.9 % Sodium Chloride 10 Ml Syringe) 10 ml IV Q8 [facility] Vancomycin HCl (Vancomycin Per Pharmacy) 1 order IV [facility] [place]; Protocol Zolpidem Tartrate (Zolpidem 5 Mg Tablet) 5 mg PO HSP PRN PRN Reason: Insomnia Last Admin: 05/12/21 21:09 Dose: 5 mg Documented by: A/P Narrative A/P Narrative: Assessment and Plans: # Ulcers b/l feet failed outpatient oral antibiotics (Clindamycin and Keflex) treatment: -vanco/rui -Dr. Randolph consulted, resc. appreciated DVT ppx: SCDs Time Spent With Patient Time: Total time spent is greater than 50% in coordination of care (as documented) at patient's floor/unit and/or counseling patient:
[2021-05-13] MEDS ORDERED: 0.9 % SODIUM CHLORIDE 10 ML SYRINGE IV SCH (14:00)
--- NOTE | 2021-05-13 14:07 | Operative Note ---
DATE OF OPERATION: 05/13/2021 PREOPERATIVE DIAGNOSES: Sepsis syndrome, complicated skin and skin structure infection dorsal aspect of both feet, between first / second toes. POSTOPERATIVE DIAGNOSES: Sepsis syndrome, complicated skin and skin structure infection dorsal aspect of both feet, between first / second toes. PROCEDURE: Excisional debridement of right foot and left foot between first and second toes and on the dorsal surface of right foot from the toes up to the ankle. SURGEON: Jim Randolph M.D. ANESTHESIA: General laryngeal mask airway. ANESTHESIOLOGIST: Kirsten Horvath M.D. ESTIMATED BLOOD LOSS: 40 mL. COUNTS: Counts of swabs, instruments, and needles was reported to be correct. FINDINGS: Stage 4 wound with necrotic tendons, skin, adipose tissue, thrombosed blood vessels between the first and second toes, and pockets of necrotic tissue and abscess debris on the dorsal aspect of right foot. Stage 4 wound dorsal surface of left foot between first and second toes. Wound dimensions of right foot dorsal surface, 15 x 6 cm. Undermining of 2 cm at 3 o'clock, 8 cm at 9 o'clock, 3 cm at 12 o'clock. Wound dimensions of left foot, 5 cm x 4 cm x 2 cm. INDICATIONS FOR SURGERY: This patient was admitted from the emergency room last evening with foul-smelling, infected right foot wound and sepsis without leukocytosis. He was started on IV antibiotics, worked up, and taken to the operating room for examination under anesthesia and debridement. PROCEDURE NOTE IN DETAIL: After obtaining informed consent, patient was taken to the OR and anesthetized uneventfully in supine position using laryngeal mask airway. Time out was called. Both legs were widely cleaned, prepped, and draped from the knee down to the toes. I first explored the open wound on the dorsal aspect of right foot. This led to multiple loculated collections with necrotic debris, blood clots, and abscess contents. The overlying skin was necrotic. Stage-rubin, gradual excision of all the necrotic tissue was carried out, until all the nonviable debris was excised. Sulky Driver samples were obtained for cultures and sensitivity and biopsies. The soft tissues on the dorsal aspect of foot were involved all the way from the tendons, fascia, blood vessels, adipose tissue up to skin. After completion of debridement, the wound was copiously washed with pulse lavage irrigation. We used 3 liters of normal saline solution. First bag consisted of plain normal saline. Second bag consisted of normal saline with 800 mg of gentamicin solution. Similar debridement was also carried out between the first and second toes of the dorsal surface of left foot. These wounds extend to the underlying synovial tissue and bone periosteum. Bleeding was controlled with suture ligation, three ties. Dressings consisted of Xeroform gauze, reinforced with Betadine-soaked Kerlix bandage. Plain gauze was placed between the toes and dressings were held in place with Kerlix bandage, ABD pad, Coban, and Frederic bandages, respectively. He recovered from anesthesia uneventfully and was taken to RR in stable condition. All counts of swabs, instruments, and needles reported to be correct. I saw this patient once he was transferred to his room and had a detailed talk with the patient and his sister, Hamilton. VD:gamaliel Job ID: [id number] Doc ID: [id number] Jim Randolph MD MTDJenise
--- NOTE | 2021-05-13 19:53 | EKG ---
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
[2021-05-13] MEDS: ZOLPIDEM 5 MG TABLET PO PRN (20:26)
[2021-05-13] MEDS: SENNOSIDES 1 TABLET PO SCH (20:27)
[2021-05-13] MEDS: ACETAMINOPHEN 325 MG TABLET PO PRN (20:35)
[2021-05-14] MEDS: PIPERACILLIN SODIUM/TAZOBACTAM 3.375 GM in DEXTROSE 5% IN WATER 50 ML IV SCH ×4 (05:34→23:35)
[2021-05-14] MEDS: 0.9 % SODIUM CHLORIDE 10 ML SYRINGE IV SCH ×3 (05:35→20:26)
[2021-05-14 06:48] LABS: Basophils # (Auto) 0.06 K/mcL (0.00-0.30); Basophils % (Auto) 0.5 % (0.0-2.0); Eosinophils # (Auto) 0.04 K/mcL (0.00-0.70); Eosinophils % (Auto) 0.4 % (0.0-7.0); Hematocrit 37.7 % (40.1-51.0); Hemoglobin 12.5 g/dL (13.7-17.5); Lymphocytes # (Auto) 0.99 K/mcL (1.50-4.80); Lymphocytes % (Auto) 8.8 % (15.5-49.0); Mean Cell Volume 94.3 fL (80.0-100.0); Mean Corpuscular HGB Conc 33.2 g/dL (31.0-36.0); Mean Platelet Volume 9.6 fL (7.4-10.4); Monocytes # (Auto) 0.94 K/mcL (0.10-0.90); Monocytes % (Auto) 8.3 % (1.0-12.0); Platelet Count 331 K/mcL (140-440); WBC 11.3 K/mcL (4.5-11.0)
[2021-05-14 07:20] LABS: Blood Urea Nitrogen 17 mg/dL (8-23); Calcium 8.4 mg/dL (8.6-10.4); Carbon Dioxide 22 mmol/L (22-30); Chloride 103 mmol/L (96-108); Glomerular Filtration Rate 62; Glucose 218 mg/dL (70-105)
[2021-05-14] MEDS ORDERED: ENALAPRILAT 1.25 MG/ML VIAL IV PRN (07:27)
[2021-05-14] MEDS ORDERED: DEXTROSE 50% 50 ML VIAL IV PRN (07:29)
[2021-05-14] MEDS ORDERED: DEXTROSE 31 GM ORAL.SUSP PO PRN (07:29)
--- NOTE | 2021-05-14 07:30 | Internal Med Progress Note ---
SUBJECTIVE Subjective Patient information: Note initiated : 05/14/21 at 7:27 am Service Date, if different from initiated Date: [] Patient: Sky Rivas 70 y/o M admitted on 05/12/21 for cellulitis/foot ulcer. Chief Complaint: [] Interval history: History of present illness: Mr. Rivas is a 70 year old M medical history presenting with bilateral feet ulcer. He stated he has chronic feet ulcer per day progressively get worse over the past couple of days. He was being prescribed of oral antibiotics 2 weeks ago Keflex and clindamycin. His r ight asked him to come to the ER today for further evaluations due to none improving nature of his episode. He denies having any pain in his feet. He denies having any fever or chills. He denies any general body weakness. He denies any other systemic symptoms. Vital signs at ER presentation within normal omits. Labs were also largely within normal limits. Bilateral feet x- ray showing soft tissue swelling with no signs of osteomyelitis. 05/13: Afebrile overnight. Blood and wound culture no growth to date. Patient denies any fever or chills. Patient denies any feet pain. Patient otherwise has no other complaints. There was no other major overnight events. 05/14 Patient a bit anxious and worried about his feet. Did not sleep last night because of the anxiety. Had debridement of feet yesterday. Review of Systems: denies headache/fever/chills/nausea/vomiting/chest or abdominal pain/cough/dyspnea/diarrhea. Otherwise see above. Constitutional Vitals: Vital Signs Temp Pulse Resp BP Pulse Ox 97.5 F 68 16 155/71 97 05/14/21 04:00 05/14/21 04:00 05/14/21 04:00 05/14/21 04:00 05/14/21 04:00 Period Temp Pulse Resp BP Sys/Barry Pulse Ox Last 24 Hr 97.4 F-98.6 F 62-85 15-27 111-173/71-125 92-100 Intake and Output 05/13/21 05/14/21 05/14/21 21:59 05:59 13:59 Intake Total 1583 50 50 Output Total 600 850 400 Balance 983 -800 -350 Weight 121.166 kg Intake & Output: Intake & Output 05/13/21 05/14/2105/14/21 21:59 05:59 13:59 Intake Total 1583 50 50 Output Total 600 850 400 Balance 983 800 -350 Weight 121.166 kg Intake: IV 1223 50 50 Sodium Chloride 0.9% 1,000 ml @ 673 100 mls/hr IV .Q10H [facility] Rx#: [id number] Zosyn 3.375 gm In Dextrose 5% 50 50 50 in Water 50 ml @ 100 mls/hr IV Q6H [facility] Rx#:[id number] Vancomycin 1,500 mg In Sodium 500 Chloride 0.9% 500 ml @ 333.3 mls/hr IV Q12H [facility] Rx#: [id number] Oral 360 Output: Void Amount 600 850 400 Other: Urine Appearance Clear Clear Clear Urine Color Dark Yellow Bright Yellow Bright Yellow Exam: General: Alert, Awake, No acute Distress, obese Eyes/N/T: EOMI, Head/Neck: neck supple, CV: RRR, No murmurs, Pulm: Clear b/l, no wheezing/rhonchi/rales Abd: soft, nontender, +BS x4 Ext: no clubbing/cyanosis, b/l feet with ulcers/erythema Neuro: Alert, no focal deficits, moves all extremities, Skin: warm/dry OBJ DATA Labs CBC & Chem 7: 05/14/21 05:01 05/14/21 05:01 Labs: Abnormal Lab Results 05/14/21 05/14/21 05/13/21 05:01 05:01 05:06 WBC 11.3 H RBC 4.00 L Hgb 12.5 L Hct 37.7 L Neut % (Auto) 82.0 H Lymph % (Auto) 8.8 L Lymph # (Auto) 0.99 L [place] # (Auto) 0.94 H Lymphocytes % Absolute Neutrophils 9.28 H Carbon Dioxide 21 L BUN Glucose 218 H Calcium 8.4 L 8.0 L Alkaline Phosphatase C-Reactive Protein 5.80 H Albumin Globulin Albumin/Globulin Ratio 05/13/21 05/12/21 05/12/21 05:06 15:57 15:57 WBC RBC 4.13 L 4.61 L Hgb 13.0 L Hct 39.6 L Neut % (Auto) Lymph % (Auto) 11.1 L Lymph # (Auto) 1.05 L [place] # (Auto) 0.98 H Lymphocytes % 14 L Absolute Neutrophils Carbon Dioxide BUN 24 H Glucose Calcium Alkaline Phosphatase 32 L C-Reactive Protein 6.50 H Albumin 2.4 L Globulin 5.3 H Albumin/Globulin Ratio 0.5 L Meds: Medications Acetaminophen (Acetaminophen 325 Mg Tablet) 650 mg PO Q6HP PRN; Protocol PRN Reason: Per Pain Protocol/Fever > 101 Last Admin: 05/13/21 20:35 Dose: 650 mg Documented by: Docusate Sodium (Docusate Sodium 100 Mg Capsule) 100 mg PO BID [facility] Last Admin: 05/13/21 20:27 Dose: Not Given Documented by: Piperacillin Sod/Tazobactam (Sod 3.375 gm/ Dextrose) 50 mls @ 100 mls/hr IV Q6H [facility]; Protocol Last Infusion: 05/14/21 06:30 Dose: Infused Documented by: Vancomycin HCl 1,500 mg/ (Sodium Chloride) 500 mls @ 333.3 mls/hr IV Q12H [facility] Last Infusion: 05/13/21 21:58 Dose: Infused Documented by: Acetaminophen (Ofirmev) 650 mg in 65 mls @ 130 mls/hr IV Q6HP PRN; Protocol PRN Reason: Per Pain Protocol/Fever > 101 Morphine Sulfate (Morphine 4 Mg/Ml Vial) 4 mg IV Q4HP PRN; Protocol PRN Reason: Per Pain Protocol Ondansetron HCl (Ondansetron 4 Mg/2 Ml Vial) 4 mg IV Q6HP PRN PRN Reason: Nausea And Vomiting Oxycodone HCl (Oxycodone Hcl 5 Mg Tablet) 5 mg PO Q4HP PRN; Protocol PRN Reason: Per Pain Protocol Senna (Sennosides 1 Tablet) 2 tab PO [facility] Last Admin: 05/13/21 20:27 Dose: Not Given Documented by: Sodium Chloride (0.9 % Sodium Chloride 10 Ml Syringe) 10 ml IV Q8 [facility] Last Admin: 05/14/21 05:35 Dose: 10 ml Documented by: Vancomycin HCl (Vancomycin Per Pharmacy) [address] [facility]; Protocol Zolpidem Tartrate (Zolpidem 5 Mg Tablet) 5 mg PO HSP PRN PRN Reason: Insomnia Last Admin: 05/13/21 20:26 Dose: 5 mg Documented by: A/P Narrative A/P Narrative: Assessment and Plans: # Ulcers b/l feet failed outpatient oral antibiotics (Clindamycin and Keflex): s/p I&D (05/13) -WC w/GNB/Strep/Proteus -careno(likely d/c soon)/rui -Dr. Randolph following with wound care team #Obese: DVT ppx: SCDs Time Spent With Patient Time: Total time spent is greater than 50% in coordination of care (as documented) at patient's floor/unit and/or counseling patient:
[2021-05-14] MEDS: INSULIN LISPRO 1 UNIT/0.01 ML UNIT SQ SCH ×4 (08:17→20:26)
[2021-05-14] MEDS: hydrALAZINE 20 MG/ML VIAL IV PRN ×2 (08:17→23:35)
[2021-05-14] MEDS ORDERED: hydrOXYzine 25 MG TABLET PO PRN (08:57)
--- NOTE | 2021-05-14 08:58 | General Surgery Progress Note ---
SUBJECTIVE Subjective Patient information: Note initiated : 05/14/21 at 8:50 am Service Date, if different from initiated Date: [] Patient: Sky Rivas 70 y/o M admitted on 05/12/21 for cellulitis/foot ulcer. Chief Complaint: [] Additional PMFSH (Level 3 Only): POD # 1. Patient seen on rounds with Jake GERARDO. Wounds examined. Spoke at length with Hamilton ( Patient's sister ) Constitutional Vitals: Vital Signs Temp Pulse Resp BP Pulse Ox 97.5 F 68 16 155/71 97 05/14/21 04:00 05/14/21 04:00 05/14/21 04:00 05/14/21 04:00 05/14/21 04:00 Period Temp Pulse Resp BP Sys/Barry Pulse Ox Last 24 Hr 97.4 F-98.6 F 62-85 15-27 111-173/71-125 92-100 Intake and Output 05/13/21 05/14/21 05/14/21 21:59 05:59 13:59 Intake Total 1583 50 50 Output Total 600 850 400 Balance 983 -800 -350 Weight 267 lb 2 oz Intake & Output: Intake & Output 05/13/21 05/14/21 05/14/21 21:59 05:59 13:59 Intake Total 1583 50 50 Output Total 600 850 400 Balance 983 -800 -350 Weight 267 lb 2 oz Intake: IV 1223 50 50 Sodium Chloride 0.9% 1,000 ml @ 673 100 mls/hr IV .Q10H [facility] Rx#: [id number] Zosyn 3.375 gm In Dextrose 5% 50 50 50 in Water 50 ml @ 100 mls/hr IV Q6H [facility] Rx#:[id number] Vancomycin 1,500 mg In Sodium 500 Chloride 0.9% 500 ml @ 333.3 mls/hr IV Q12H [facility] Rx#: [id number] Oral 360 Output: Void Amount 600 850 400 Other: Urine Appearance Clear Clear Clear Urine Color Dark Yellow Bright Yellow Bright Yellow Exam: AVSS, No changes in VIOLETA. Wounds over RIGHT foot and LEFT forefoot examined NO odor. Sturdy Granulations over 70% wound bed. Patient is DEPRESSED. Labs reviewed. CRP trending down. Preliminary wound c/s GNB, Strep agalactiae Sensitivities pending. A/P Narrative A/P Narrative: Assessment: Satisfactory post surgical progress. Patient will benefit from credit counselor and Physical therapy. Spoke with patient and his sister, They concur. Needs ongoing wound care, ROM exercises in bed. OK to get OOB and sit on commode. Plan: Continue wound care as ordered. Tele psych consult. Physical Therapy evaluation. PLAN reviewed with Dr. Mallory. Hospitalist Physician. Time Spent With Patient Time: Total time spent is greater than 50% in coordination of care (as documented) at patient's floor/unit and/or counseling patient:
[2021-05-14] MEDS: MUPIROCIN OINT 2% 22GM TOPICAL SCH (09:27)
[2021-05-14] MEDS: DOCUSATE SODIUM 100 MG CAPSULE PO SCH ×2 (09:34→20:26)
--- NOTE | 2021-05-14 10:27 | Surgical Pathology Report ---
Histology Microscopic Diagnosis Specimen A- SOFT TISSUE, RIGHT FOOT BLOOD VESSEL, BIOPSY: --- FRAGMENTS OF FIBRIN BLOOD CLOT AND NECROTIZING ACUTE INFLAMMATION. --- NO MALIGNANCY IDENTIFIED. Procedural Impression Cellulitis/foot ulcer. Gross Description Received in formalin labeled right foot blood vessel, are multiple christine-sharp tissue fragments and red-brown clot-like fragments from less than 0.1 to 1 x 0.7 x 0.2 cm. The largest fragment is sectioned. Entirely submitted - one cassette. Microscopic Diagnosis Specimen B- SKIN, RIGHT FOOT NECROTIC TISSUE, EXCISION: --- HYPER AND PARAKERATOSIS WITH FOCAL SERUM CRUST AND DERMAL MIXED ACUTE AND CHRONIC INFLAMMATION WITH CELLULITIS. --- NO MALIGNANCY IDENTIFIED. Gross Description Received in formalin labeled right foot necrotic tissue, are multiple sharp to dusky sharp fragments of possible skin ranging in size from 0.4 x 0.3 x 0.2 to 4.5 x 1.7 x 0.8 cm. The possible margins are inked black. Nursing Scheduler sections are submitted in one cassette. (SCB:sln) Electronically Signed Cielo Kerr MD, FCAP Electronically Signed 05/14/2021 10:26
[2021-05-14] MEDS: VANCOMYCIN 1,500 MG in 0.9 % SODIUM CHLORIDE 500 ML IV SCH (11:05)
[2021-05-14] MEDS: oxyCODONE HCL 5 MG TABLET PO PRN (19:02)
[2021-05-14] MEDS: SENNOSIDES 1 TABLET PO SCH (20:26)
[2021-05-14] MEDS: ZOLPIDEM 5 MG TABLET PO PRN (20:26)
[2021-05-14] MEDS: MELATONIN 3 MG TABLET PO SCH (20:26)
[2021-05-15] MEDS: 0.9 % SODIUM CHLORIDE 10 ML SYRINGE IV SCH ×3 (05:52→20:39)
[2021-05-15] MEDS: PIPERACILLIN SODIUM/TAZOBACTAM 3.375 GM in DEXTROSE 5% IN WATER 50 ML IV SCH ×2 (05:52→11:21)
[2021-05-15 07:28] LABS: Basophils # (Auto) 0.08 K/mcL (0.00-0.30); Basophils % (Auto) 1.1 % (0.0-2.0); Eosinophils % (Auto) 2.6 % (0.0-7.0); Hemoglobin 13.1 g/dL (13.7-17.5); Lymphocytes # (Auto) 1.49 K/mcL (1.50-4.80); Lymphocytes % (Auto) 19.7 % (15.5-49.0); Mean Cell Volume 93.5 fL (80.0-100.0); Mean Corpuscular HGB Conc 33.6 g/dL (31.0-36.0); Mean Platelet Volume 9.3 fL (7.4-10.4); Monocytes # (Auto) 0.79 K/mcL (0.10-0.90); Monocytes % (Auto) 10.5 % (1.0-12.0); Neutrophils % (Auto) 66.1 % (38.0-78.0); Platelet Count 349 K/mcL (140-440); RBC 4.17 M/mcL (4.63-6.08); Red Cell Distribution Width 13.2 % (11.5-14.5); WBC 7.6 K/mcL (4.5-11.0)
[2021-05-15] MEDS: INSULIN LISPRO 1 UNIT/0.01 ML UNIT SQ SCH ×4 (07:36→20:39)
[2021-05-15 07:42] LABS: Prealbumin 10.9 mg/dL (20.0-40.0)
[2021-05-15 07:43] LABS: ALT/SGPT 12 U/L (<40); AST/SGOT 10 U/L (<40); Albumin 2.2 gm/dL (3.2-5.2); Albumin/Globulin Ratio 0.5 (1.0-2.3); Alkaline Phosphatase 26 U/L (39-117); Bilirubin,Direct < 0.2 mg/dL (0-0.3); Bilirubin,Total 0.3 mg/dL (0.1-1.0); Blood Urea Nitrogen 17 mg/dL (8-23); Calcium 8.6 mg/dL (8.6-10.4); Carbon Dioxide 22 mmol/L (22-30); Chloride 103 mmol/L (96-108); Globulin 4.6 gm/dL (2.2-3.7); Glomerular Filtration Rate 47; Glucose 101 mg/dL (70-105); Lactate Dehydrogenase 121 U/L (135-225); Phosphorous 3.9 mg/dL (2.5-4.5); Triglycerides 81 mg/dL (<150)
[2021-05-15 07:45] LABS: ALT/SGPT 12 U/L (<40); AST/SGOT 10 U/L (<40); Albumin 2.1 gm/dL (3.2-5.2); Albumin/Globulin Ratio 0.4 (1.0-2.3); Alkaline Phosphatase 26 U/L (39-117); Bilirubin,Total 0.3 mg/dL (0.1-1.0); Blood Urea Nitrogen 17 mg/dL (8-23); Calcium 8.6 mg/dL (8.6-10.4); Carbon Dioxide 23 mmol/L (22-30); Chloride 104 mmol/L (96-108); Globulin 4.7 gm/dL (2.2-3.7); Glomerular Filtration Rate 47; Glucose 99 mg/dL (70-105); Thyroid Stimulating Hormone 0.97 uIU/mL (0.27-5.01)
--- NOTE | 2021-05-15 07:49 | Internal Med Progress Note ---
SUBJECTIVE Subjective Patient information: Note initiated : 05/15/21 at 7:45 am Service Date, if different from initiated Date: [] Patient: Sky Rivas 70 y/o M admitted on 05/12/21 for cellulitis/foot ulcer. Chief Complaint: [] Interval history: History of present illness: Mr. Rivas is a 70 year old M medical history presenting with bilateral feet ulcer. He stated he has chronic feet ulcer per day progressively get worse over the past couple of days. He was being prescribed of oral antibiotics 2 weeks ago Keflex and clindamycin. His r ight asked him to come to the ER today for further evaluations due to none improving nature of his episode. He denies having any pain in his feet. He denies having any fever or chills. He denies any general body weakness. He denies any other systemic symptoms. Vital signs at ER presentation within normal omits. Labs were also largely within normal limits. Bilateral feet x- ray showing soft tissue swelling with no signs of osteomyelitis. 05/13: Afebrile overnight. Blood and wound culture no growth to date. Patient denies any fever or chills. Patient denies any feet pain. Patient otherwise has no other complaints. There was no other major overnight events. 05/14 Patient a bit anxious and worried about his feet. Did not sleep last night because of the anxiety. Had debridement of feet yesterday. 05/15 Patient seems a little depressed. Had poor sleep last night because of inter ruptions. No other overnight event or new complaints. Wound cultures growing Streptococcus and Proteus. Review of Systems: denies headache/fever/chills/nausea/vomiting/chest or abdominal pain/cough /dyspnea/diarrhea. Otherwise see above. Constitutional Vitals: Vital Signs Temp Pulse Resp BP Pulse Ox 98.9 F 77 20 158/93 94 05/15/21 04:00 05/15/21 04:00 05/15/21 04:00 05/15/21 04:00 05/15/21 04:00 Period Temp Pulse Resp BP Sys/Barry Pulse Ox Last 24 Hr 98.0 F-98.9 F 64-77 18-20 127-173/53-120 93-97 Intake and Output 05/14/21 05/15/21 05/15/21 21:59 05:59 13:59 Intake Total 930 1470 50 Output Total 1125 1900 700 Balance -195 430 -650 Weight 121.705 kg Intake & Output: Intake & Output 05/14/21 05/15/21 05/15/21 21:59 05:59 13:59 Intake Total 930 1470 50 Output Total 1125 1900 700 Balance -195 430 -650 Weight 121.705 kg Intake: IV 50 50 50 Zosyn 3.375 gm In Dextrose 5% 50 50 50 in Water 50 ml @ 100 mls/hr IV Q6H [facility] Rx#:[id number] Oral 880 1420 Output: Void Amount 1120 5453 700 Other: Meal Dinner Percent of Meal Consumed 100% Feeding Ability Independent Urine Appearance Clear Clear Clear Urine Color Bright Yellow Pale Pale Urine Odor Normal Normal Exam: General: Alert, Awake, No acute Distress, obese Eyes/N/T: EOMI, Head/Neck: neck supple, CV: RRR, No murmurs, Pulm: Clear b/l, no wheezing/rhonchi/rales Abd: soft, nontender, +BS x4 Ext: no clubbing/cyanosis, b/l feet in dressings Neuro: Alert, no focal deficits, moves all extremities, Skin: warm/dry OBJ DATA Labs CBC & Chem 7: 05/15/21 04:56 05/15/21 04:57 Labs: Abnormal Lab Results 05/15/21 05/15/21 05/15/21 04:57 04:56 04:56 WBC RBC 4.17 L Hgb 13.1 L Hct 39.0 L Neut % (Auto) Lymph % (Auto) Lymph # (Auto) 1.49 L [place] # (Auto) Lymphocytes % Absolute Neutrophils Carbon Dioxide BUN Creatinine 1.5 H Glucose Calcium Alkaline Phosphatase 26 L Lactate Dehydrogenase 121 L C-Reactive Protein 3.40 H Albumin 2.2 L Globulin 4.6 H Albumin/Globulin Ratio 0.5 L Prealbumin 10.9 L 05/14/21 05/14/21 05/13/21 05:01 05:01 05:06 WBC 11.3 H RBC 4.00 L Hgb 12.5 L Hct 37.7 L Neut % (Auto) 82.0 H Lymph % (Auto) 8.8 L Lymph # (Auto) 0.99 L [place] # (Auto) 0.94 H Lymphocytes % Absolute Neutrophils 9.28 H Carbon Dioxide 21 L BUN Creatinine Glucose 218 H Calcium 8.4 L 8.0 L Alkaline Phosphatase Lactate Dehydrogenase C-Reactive Protein 5.80 H Albumin Globulin Albumin/Globulin Ratio Prealbumin 05/13/21 05/12/21 05/12/21 05:06 15:57 15:57 WBC RBC 4.13 L 4.61 L Hgb 13.0 L Hct 39.6 L Neut % (Auto) Lymph % (Auto) 11.1 L Lymph # (Auto) 1.05 L [place] # (Auto) 0.98 H Lymphocytes % 14 L Absolute Neutrophils Carbon Dioxide BUN 24 H Creatinine Glucose Calcium Alkaline Phosphatase 32 L Lactate Dehydrogenase C-Reactive Protein 6.50 H Albumin 2.4 L Globulin 5.3 H Albumin/Globulin Ratio 0.5 L Prealbumin Meds: Medications Acetaminophen (Acetaminophen 325 Mg Tablet) 650 mg PO Q6HP PRN; Protocol PRN Reason: Per Pain Protocol/Fever > 101 Last Admin: 05/13/21 20:35 Dose: 650 mg Documented by: Dextrose (Dextrose 50% 50 Ml Vial) 0 ml IV UD PRN PRN Reason: Hypoglycemia Diagnostic Test (Pha) (Accu-Chek 1 Each Strip) 1 each FS ACHS [facility] Last Admin: 05/15/21 07:36 Dose: 1 each Documented by: Docusate Sodium (Docusate Sodium 100 Mg Capsule) 100 mg PO BID [facility] Last Admin: 05/14/21 20:26 Dose: 100 mg Documented by: Enalaprilat (Enalaprilat 1.25 Mg/Ml Vial) 0 mg IV Q2HP PRN PRN Reason: Hypertension Enoxaparin Sodium (Enoxaparin 40 Mg/0.4 Ml Syringe) 40 mg SQ DAILY [facility] Glucose (Dextrose 31 Gm Oral.Susp) 15 gm PO PRN PRN PRN Reason: Hypoglycemia Hydralazine HCl (Hydralazine 20 Mg/Ml Vial) 0 mg IV Q2HP PRN PRN Reason: Hypertension Last Admin: 05/14/21 23:35 Dose: 20 mg Documented by: Hydroxyzine HCl (Hydroxyzine 25 Mg Tablet) 50 mg PO TIDP PRN PRN Reason: anxiety Piperacillin Sod/Tazobactam (Sod 3.375 gm/ Dextrose) 50 mls @ 100 mls/hr IV Q6H [facility]; Protocol Last Infusion: 05/15/21 06:22 Dose: Infused Documented by: Acetaminophen (Ofirmev) 650 mg in 65 mls @ 130 mls/hr IV Q6HP PRN; Protocol PRN Reason: Per Pain Protocol/Fever > 101 Insulin Human Lispro (Insulin Lispro 1 Unit/0.01 Ml Unit) 0 unit SQ ACHS [facility]; Protocol Last Admin: 05/15/21 07:36 Dose: Not Given Documented by: Melatonin (Melatonin 3 Mg Tablet) 3 mg PO QHS [facility] Last Admin: 05/14/21 20:26 Dose: 3 mg Documented by: Morphine Sulfate (Morphine 4 Mg/Ml Vial) 4 mg IV Q4HP PRN; Protocol PRN Reason: Per Pain Protocol Mupirocin (Mupirocin Oint 2% 22gm) 1 dose TOPICAL DAILY [facility] Last Admin: 05/14/21 09:27 Dose: 1 dose Documented by: Ondansetron HCl (Ondansetron 4 Mg/2 Ml Vial) 4 mg IV Q6HP PRN PRN Reason: Nausea And Vomiting Oxycodone HCl (Oxycodone Hcl 5 Mg Tablet) 5 mg PO Q4HP PRN; Protocol PRN Reason: Per Pain Protocol Last Admin: 05/14/21 19:02 Dose: 5 mg Documented by: Senna (Sennosides 1 Tablet) 2 tab PO HS [facility] Last Admin: 05/14/21 20:26 Dose: 2 tab Documented by: Sodium Chloride (0.9 % Sodium Chloride 10 Ml Syringe) 10 ml IV Q8 [facility] Last Admin: 05/15/21 05:52 Dose: 10 ml Documented by: Zolpidem Tartrate (Zolpidem 5 Mg Tablet) 5 mg PO [facility] PRN PRN Reason: Insomnia Last Admin: 05/14/21 20:26 Dose: 5 mg Documented by: A/P Narrative A/P Narrative: Assessment and Plans: # Ulcers b/l feet failed outpatient oral antibiotics (Clindamycin and Keflex): s/p I&D (05/13) -WC growing Strep/Proteus #Obese: #CKD III: #pre-diabetes: A1c 6.0 P: -frances(d/c)/rui Randolph following with wound care team -f/u renal fxn -SSI -ppx: lovenox Time Spent With Patient Time: Total time spent is greater than 50% in coordination of care (as documented) at patient's floor/unit and/or counseling patient:
[2021-05-15] MEDS: DOCUSATE SODIUM 100 MG CAPSULE PO SCH ×2 (08:26→20:38)
[2021-05-15] MEDS: hydrALAZINE 20 MG/ML VIAL IV PRN ×2 (08:26→16:30)
[2021-05-15] MEDS: ENOXAPARIN 40 MG/0.4 ML SYRINGE SQ SCH (08:26)
[2021-05-15 08:52] LABS: Estimated Average Glucose(eAG) 126 mg/dL
[2021-05-15] MEDS ORDERED: diphenhydrAMINE 25 MG CAPSULE PO PRN (09:00)
[2021-05-15] MEDS: MUPIROCIN OINT 2% 22GM TOPICAL SCH (10:48)
[2021-05-15] MEDS: cefTRIAXone 2 GM in DEXTROSE 5% IN WATER 50 ML IV SCH (12:15)
[2021-05-15] MEDS ORDERED: POLYETHYLENE GLYCOL 3350 17 GM PACKET PO PRN (12:33)
--- NOTE | 2021-05-15 17:15 | General Surgery Progress Note ---
SUBJECTIVE Subjective Patient information: Note initiated : 05/15/21 at 5:09 pm Service Date, if different from initiated Date: [] Patient: Sky Rivas 70 y/o M admitted on 05/12/21 for cellulitis/foot ulcer. Chief Complaint: [] Additional PMFSH (Level 3 Only): POD # 2. Saw patient with Jake Wood RN and examined wounds. Constitutional Vitals: Vital Signs Temp Pulse Resp BP Pulse Ox 97.7 F 74 18 169/88 94 05/15/21 16:06 05/15/21 11:20 05/15/21 16:06 05/15/21 16:46 05/15/21 16:06 Period Temp Pulse Resp BP Sys/Barry Pulse Ox Last 24 Hr 97.7 F-98.9 F 64-77 16-20 152-184/88-100 92-94 Intake and Output 05/15/21 05/15/21 05/15/21 05:59 13:59 21:59 Intake Total 1470 1670 1490 Output Total 1900 1150 750 Balance -430 520 740 Intake & Output: Intake & Output 05/15/21 05/15/21 05/15/21 05:59 13:59 21:59 Intake Total 1470 1670 1490 Output Total 1900 1150 750 Balance -430 520 740 Intake: Nourishment/Supplement quantity 240 (ml) IV 50 150 Zosyn 3.375 gm In Dextrose 5% 50 100 in Water 50 ml @ 100 mls/hr IV Q6H [facility] Rx#:[id number] Rocephin 2 gm In Dextrose 5% in 50 Water 50 ml @ 100 mls/hr IV Q24H [facility] Rx#:[id number] Oral 1420 1280 1490 Output: Void Amount 1900 1150 750 Other: Meal Lunch Percent of Meal Consumed 75% Nourishment/Supplement name Ensure Urine Appearance Clear Clear Clear Urine Color Pale Pale Urine Odor Normal Stool Size Large Stool Color Brown Stool Consistency Formed # Bowel Movements 1 Exam: AVSS. No changes VIOLETA. R/L foot wounds are stable. C/S Strep / proteus. Local wound care is ongoing. Patient does NOT want PSYCH consult labs reviewed. Prealbumin is 10 A/P Narrative A/P Narrative: Assessment: No changes in VIOLETA. Emphasized nutrition repletion. Energy foods. OXANDRIN is NOT available. Patient's sister wants to take him home. She will continue with local wound care. Plan: Continue present treatment. Anticipate D/C after weekend . LATER F/U continuity of care at wound clinic. Time Spent With Patient Time: Total time spent is greater than 50% in coordination of care (as documented) at patient's floor/unit and/or counseling patient: Total time spent with greater than 50% in coordination of care (as documented) at patient's floor/unit and/or counseling patient:: 15 - 24 minutes
[2021-05-15] MEDS: oxyCODONE HCL 5 MG TABLET PO PRN (19:33)
[2021-05-15] MEDS: MELATONIN 3 MG TABLET PO SCH (20:32)
[2021-05-15] MEDS: ZOLPIDEM 5 MG TABLET PO PRN (20:32)
[2021-05-15] MEDS: SENNOSIDES 1 TABLET PO SCH (20:38)
[2021-05-16] MEDS: hydrALAZINE 20 MG/ML VIAL IV PRN ×3 (05:02→16:09)
[2021-05-16] MEDS: 0.9 % SODIUM CHLORIDE 10 ML SYRINGE IV SCH ×4 (05:03→22:00)
[2021-05-16 06:57] LABS: Blood Urea Nitrogen 18 mg/dL (8-23); Calcium 8.6 mg/dL (8.6-10.4); Carbon Dioxide 23 mmol/L (22-30); Chloride 102 mmol/L (96-108); Glomerular Filtration Rate 51; Glucose 101 mg/dL (70-105)
--- NOTE | 2021-05-16 07:37 | Internal Med Progress Note ---
SUBJECTIVE Subjective Patient information: Note initiated : 05/16/21 at 7:36 am Service Date, if different from initiated Date: [] Patient: Sky Rivas 70 y/o M admitted on 05/12/21 for cellulitis/foot ulcer. Chief Complaint: [] Interval history: History of present illness: Mr. Rivas is a 70 year old M medical history presenting with bilateral feet ulcer. He stated he has chronic feet ulcer per day progressively get worse over the past couple of days. He was being prescribed of oral antibiotics 2 weeks ago Keflex and clindamycin. His r ight asked him to come to the ER today for further evaluations due to none improving nature of his episode. He denies having any pain in his feet. He denies having any fever or chills. He denies any general body weakness. He denies any other systemic symptoms. Vital signs at ER presentation within normal omits. Labs were also largely within normal limits. Bilateral feet x- ray showing soft tissue swelling with no signs of osteomyelitis. 05/13: Afebrile overnight. Blood and wound culture no growth to date. Patient denies any fever or chills. Patient denies any feet pain. Patient otherwise has no other complaints. There was no other major overnight events. 05/14 Patient a bit anxious and worried about his feet. Did not sleep last night because of the anxiety. Had debridement of feet yesterday. 05/15 Patient seems a little depressed. Had poor sleep last night because of inter ruptions. No other overnight event or new complaints. Wound cultures growing Streptococcus and Proteus. 05/16 Patient says he slept a little bit better last night. No new complaints overnight events. Awaiting placement for likely Tuesday. Continue wound care treatments. Review of Systems: denies headache/fever/chills/nausea/vomiting/chest or abdominal pain/cough/dyspnea/diarrhea. Otherwise see above. Constitutional Vitals: Vital Signs Temp Pulse Resp BP Pulse Ox 98.5 F 94 H 18 157/97 96 05/16/21 07:21 05/16/21 07:21 05/16/21 07:21 05/16/21 07:21 05/16/21 07:21 Period Temp Pulse Resp BP Sys/Barry Pulse Ox Last 24 Hr 97.7 F-99.2 F 69-94 16-22 140-184/82-100 92-96 Intake and Output 05/15/21 05/16/21 05/16/21 21:59 05:59 13:59 Intake Total 1790 700 Output Total 1400 1125 500 Balance 390 -425 -500 Weight 121.472 kg Intake & Output: Intake & Output 05/15/21 05/16/21 05/16/21 21:59 05:59 13:59 Intake Total 1790 700 Output Total 1400 1125 500 Balance 390 -425 -500 Weight 121.472 kg Intake: Oral 1790 700 Output: Void Amount 1400 1125 500 Other: Meal Dinner Percent of Meal Consumed 100% Feeding Ability Independent Urine Appearance Clear Clear Clear Urine Color Pale Pale Bright Yellow Urine Odor Normal Normal Stool Size Large Stool Color Brown Stool Consistency Liquid Loose # Voids 1 # Bowel Movements 1 Exam: General: Alert, Awake, No acute Distress, obese Eyes/N/T: EOMI, Head/Neck: neck supple, CV: RRR, No murmurs, Pulm: Clear b/l, no wheezing/rhonchi/rales Abd: soft, nontender, +BS x4 Ext: no clubbing/cyanosis, b/l feet in dressings Neuro: Alert, no focal deficits, moves all extremities, Skin: warm/dry OBJ DATA Labs CBC & Chem 7: 05/15/21 04:56 05/16/21 05:04 Labs: Abnormal Lab Results 05/16/21 05/15/21 05/15/21 05:04 04:57 04:56 WBC RBC Hgb Hct Neut % (Auto) Lymph % (Auto) Lymph # (Auto) [place] # (Auto) Absolute Neutrophils Carbon Dioxide Creatinine 1.4 H 1.5 H 1.5 H Glucose Calcium Alkaline Phosphatase 26 L 26 L Lactate Dehydrogenase 121 L C-Reactive Protein 3.40 H Albumin 2.2 L 2.1 L Globulin 4.6 H 4.7 H Albumin/Globulin Ratio 0.5 L 0.4 L Prealbumin 10.9 L 05/15/21 05/14/21 05/14/21 04:56 05:01 05:01 WBC 11.3 H RBC 4.17 L 4.00 L Hgb 13.1 L 12.5 L Hct 39.0 L 37.7 L Neut % (Auto) 82.0 H Lymph % (Auto) 8.8 L Lymph # (Auto) 1.49 L 0.99 L [place] # (Auto) 0.94 H Absolute Neutrophils 9.28 H Carbon Dioxide Creatinine Glucose 218 H Calcium 8.4 L Alkaline Phosphatase Lactate Dehydrogenase C-Reactive Protein 5.80 H Albumin Globulin Albumin/Globulin Ratio Prealbumin 05/13/21 05:06 WBC RBC Hgb Hct Neut % (Auto) Lymph % (Auto) Lymph # (Auto) [place] # (Auto) Absolute Neutrophils Carbon Dioxide 21 L Creatinine Glucose Calcium 8.0 L Alkaline Phosphatase Lactate Dehydrogenase C-Reactive Protein Albumin Globulin Albumin/Globulin Ratio Prealbumin Meds: Medications Acetaminophen (Acetaminophen 325 Mg Tablet) 650 mg PO Q6HP PRN; Protocol PRN Reason: Per Pain Protocol/Fever > 101 Last Admin: 05/13/21 20:35 Dose: 650 mg Documented by: Dextrose (Dextrose 50% 50 Ml Vial) 0 ml IV UD PRN PRN Reason: Hypoglycemia Diagnostic Test (Pha) (Accu-Chek 1 Each Strip) [address] [facility] Last Admin: 05/15/21 20:39 Dose: 1 each Documented by: Diphenhydramine HCl (Diphenhydramine 25 Mg Capsule) 25 mg PO HSP PRN PRN Reason: Insomnia Docusate Sodium (Docusate Sodium 100 Mg Capsule) 100 mg PO BID [facility] Last Admin: 05/15/21 20:38 Dose: Not Given Documented by: Enalaprilat (Enalaprilat 1.25 Mg/Ml Vial) 0 mg IV Q2HP PRN PRN Reason: Hypertension Enoxaparin Sodium (Enoxaparin 40 Mg/0.4 Ml Syringe) 40 mg SQ DAILY [facility] Last Admin: 05/15/21 08:26 Dose: 40 mg Documented by: Glucose (Dextrose 31 Gm Oral.Susp) 15 gm PO PRN PRN PRN Reason: Hypoglycemia Hydralazine HCl (Hydralazine 20 Mg/Ml Vial) 0 mg IV Q2HP PRN PRN Reason: Hypertension Last Admin: 05/16/21 05:02 Dose: 20 mg Documented by: Hydroxyzine HCl (Hydroxyzine 25 Mg Tablet) 50 mg PO TIDP PRN PRN Reason: anxiety Acetaminophen (Ofirmev) 650 mg in 65 mls @ 130 mls/hr IV Q6HP PRN; Protocol PRN Reason: Per Pain Protocol/Fever > 101 Ceftriaxone Sodium 2 gm/ (Dextrose) 50 mls @ 100 mls/hr IV Q24H [facility]; Protocol Last Infusion: 05/15/21 12:45 Dose: Infused Documented by: Insulin Human Lispro (Insulin Lispro 1 Unit/0.01 Ml Unit) 0 unit SQ ACHS [facility]; Protocol Last Admin: 05/15/21 20:39 Dose: Not Given Documented by: Melatonin (Melatonin 3 Mg Tablet) 3 mg PO QHS [facility] Last Admin: 05/15/21 20:32 Dose: 3 mg Documented by: Morphine Sulfate (Morphine 4 Mg/Ml Vial) 4 mg IV Q4HP PRN; Protocol PRN Reason: Per Pain Protocol Mupirocin (Mupirocin Oint 2% 22gm) 1 dose TOPICAL DAILY [facility] Last Admin: 05/15/21 10:48 Dose: 1 dose Documented by: Ondansetron HCl (Ondansetron 4 Mg/2 Ml Vial) 4 mg IV Q6HP PRN PRN Reason: Nausea And Vomiting Oxycodone HCl (Oxycodone Hcl 5 Mg Tablet) 5 mg PO Q4HP PRN; Protocol PRN Reason: Per Pain Protocol Last Admin: 05/15/21 19:33 Dose: 5 mg Documented by: Polyethylene Glycol (Polyethylene Glycol 3350 17 Gm Packet) 17 gm PO DAILYP PRN PRN Reason: Constipation Last Admin: 05/15/21 13:06 Dose: 17 gm Documented by: Senna (Sennosides 1 Tablet) 2 tab PO HS [facility] Last Admin: 05/15/21 20:38 Dose: Not Given Documented by: Sodium Chloride (0.9 % Sodium Chloride 10 Ml Syringe) 10 ml IV Q8 [facility] Last Admin: 05/16/21 05:03 Dose: 10 ml Documented by: Zolpidem Tartrate (Zolpidem 5 Mg Tablet) 5 mg PO HSP PRN PRN Reason: Insomnia Last Admin: 05/15/21 20:32 Dose: 5 mg Documented by: A/P Narrative A/P Narrative: Assessment and Plans: # Ulcers b/l feet failed outpatient oral antibiotics (Clindamycin and Keflex): s/p I&D (05/13) -WC growing Strep/Proteus #Obese: #CKD III: #pre-diabetes: A1c 6.0 P: -rui arredondo -Dr. Randolph following with wound care team -urine sodium/creatinine still pending from yesterday -SSI -ppx: lovenox Time Spent With Patient Time: Total time spent is greater than 50% in coordination of care (as documented) at patient's floor/unit and/or counseling patient:
[2021-05-16] MEDS: INSULIN LISPRO 1 UNIT/0.01 ML UNIT SQ SCH (08:31)
[2021-05-16] MEDS: DOCUSATE SODIUM 100 MG CAPSULE PO SCH ×2 (08:33→20:33)
[2021-05-16] MEDS: ENOXAPARIN 40 MG/0.4 ML SYRINGE SQ SCH (08:47)
[2021-05-16] MEDS: oxyCODONE HCL 5 MG TABLET PO PRN ×2 (08:47→19:36)
[2021-05-16] MEDS: MUPIROCIN OINT 2% 22GM TOPICAL SCH (08:47)
[2021-05-16] MEDS: cefTRIAXone 2 GM in DEXTROSE 5% IN WATER 50 ML IV SCH (08:47)
--- NOTE | 2021-05-16 15:51 | General Surgery Progress Note ---
SUBJECTIVE Subjective Patient information: Note initiated : 05/16/21 at 3:47 pm Service Date, if different from initiated Date: [] Patient: Sky Rivas 70 y/o M admitted on 05/12/21 for cellulitis/foot ulcer. Chief Complaint: [] Additional PMFSH (Level 3 Only): Patient seen with nursing staff. Undergoing MIST treatment. Cheerful and conversational. Appetite improving. Had regular BM. Back to his baseline ADL Constitutional Vitals: Vital Signs Temp Pulse Resp BP Pulse Ox 97.7 F 83 18 150/90 95 05/16/21 12:00 05/16/21 12:00 05/16/21 12:00 05/16/21 12:00 05/16/21 12:00 Period Temp Pulse Resp BP Sys/Barry Pulse Ox Last 24 Hr 97.7 F-99.2 F 76-94 18-22 140-184/82-100 93-96 Intake and Output 05/16/21 05/16/21 05/16/21 05:59 13:59 21:59 Intake Total 700 290 Output Total 1125 1050 Balance -425 -760 Intake & Output: Intake & Output 05/16/21 05/16/21 05/16/21 05:59 13:59 21:59 Intake Total 700 290 Output Total 1125 1050 Balance -425 -760 Intake: IV 50 Rocephin 2 gm In Dextrose 5% in 50 Water 50 ml @ 100 mls/hr IV Q24H [facility] Rx#:[id number] Oral 700 240 Output: Void Amount 1125 1050 Other: Meal Lunch Percent of Meal Consumed 100% Urine Appearance Clear Clear Urine Color Pale Bright Yellow Urine Odor Normal Stool Size Moderate Stool Color Brown Stool Consistency Soft # Bowel Movements 1 Exam: AVSS. No changes VIOLETA. L/E. Granulating wounds. Responding well to MIST treatments and systemic antibiotics. A/P Narrative A/P Narrative: Assessment: Slow, steady and satisfactory progress. Plan: Continue present treatment. Anticipate D/C after weekend. Time Spent With Patient Time: Total time spent is greater than 50% in coordination of care (as documented) at patient's floor/unit and/or counseling patient: Total time spent with greater than 50% in coordination of care (as documented) at patient's floor/unit and/or counseling patient:: 15 - 24 minutes
[2021-05-16] MEDS: SENNOSIDES 1 TABLET PO SCH (20:33)
[2021-05-16] MEDS: MELATONIN 3 MG TABLET PO SCH (20:33)
[2021-05-16] MEDS: ZOLPIDEM 5 MG TABLET PO PRN (20:33)
[2021-05-17] MEDS: hydrALAZINE 20 MG/ML VIAL IV PRN ×2 (05:13→09:23)
[2021-05-17] MEDS: 0.9 % SODIUM CHLORIDE 10 ML SYRINGE IV SCH ×3 (05:14→19:43)
--- NOTE | 2021-05-17 07:52 | Internal Med Progress Note ---
SUBJECTIVE Subjective Patient information: Note initiated : 05/17/21 at 7:51 am Service Date, if different from initiated Date: [] Patient: Sky Rivas 70 y/o M admitted on 05/12/21 for cellulitis/foot ulcer. Chief Complaint: [] Interval history: History of present illness: Mr. Rivas is a 70 year old M medical history presenting with bilateral feet ulcer. He stated he has chronic feet ulcer per day progressively get worse over the past couple of days. He was being prescribed of oral antibiotics 2 weeks ago Keflex and clindamycin. His r ight asked him to come to the ER today for further evaluations due to none improving nature of his episode. He denies having any pain in his feet. He denies having any fever or chills. He denies any general body weakness. He denies any other systemic symptoms. Vital signs at ER presentation within normal omits. Labs were also largely within normal limits. Bilateral feet x- ray showing soft tissue swelling with no signs of osteomyelitis. 05/13: Afebrile overnight. Blood and wound culture no growth to date. Patient denies any fever or chills. Patient denies any feet pain. Patient otherwise has no other complaints. There was no other major overnight events. 05/14 Patient a bit anxious and worried about his feet. Did not sleep last night because of the anxiety. Had debridement of feet yesterday. 05/15 Patient seems a little depressed. Had poor sleep last night because of inter ruptions. No other overnight event or new complaints. Wound cultures growing Streptococcus and Proteus. 05/16 Patient says he slept a little bit better last night. No new complaints overnight events. Awaiting placement for likely Tuesday. Continue wound care treatments. 05/17 No changes. Patient sleeping comfortably. Awakens. Likely discharge on Tuesday. Review of Systems: denies headache/fever/chills/nausea/vomiting/chest or abdominal pain/cough/dyspnea/diarrhea. Otherwise see above. Constitutional Vitals: Vital Signs Temp Pulse Resp BP Pulse Ox 99.0 F 75 20 164/93 96 05/17/21 04:00 05/17/21 04:00 05/17/21 04:00 05/17/21 04:00 05/17/21 04:00 Period Temp Pulse Resp BP Sys/Barry Pulse Ox Last 24 Hr 97.7 F-99.0 F 75-94 18-20 144-174/78-93 94-96 Intake and Output 05/16/21 05/17/21 05/17/21 21:59 05:59 13:59 Intake Total 400 400 Output Total 600 200 Balance -200 200 Weight 120.928 kg Intake & Output: Intake & Output 05/16/21 05/17/21 05/17/21 21:59 05:59 13:59 Intake Total 400 400 Output Total 600 200 Balance -200 200 Weight 120.928 kg Intake: Oral 400 400 Output: Void Amount 600 200 Other: Meal Dinner Percent of Meal Consumed 50% Urine Appearance Clear Clear Urine Color Bright Yellow Dark Yellow Urine Odor Normal Exam: General: Alert, Awake, No acute Distress, obese Eyes/N/T: EOMI, Head/Neck: neck supple, CV: RRR, No murmurs, Pulm: Clear b/l, no wheezing/rhonchi/rales Abd: soft, nontender, +BS x4 Ext: no clubbing/cyanosis, b/l feet in dressings Neuro: Alert, no focal deficits, moves all extremities, Skin: warm/dry OBJ DATA Labs CBC & Chem 7: 05/15/21 04:56 05/16/21 05:04 Labs: Abnormal Lab Results 05/16/21 05/15/21 05/15/21 05:04 09:40 04:57 RBC Hgb Hct Lymph # (Auto) Creatinine 1.4 H 1.5 H Alkaline Phosphatase 26 L Lactate Dehydrogenase 121 L C-Reactive Protein 3.40 H Albumin 2.2 L Globulin 4.6 H Albumin/Globulin Ratio 0.5 L Prealbumin Ur Random Creatinine 29.0 L 05/15/21 05/15/21 04:56 04:56 RBC 4.17 L Hgb 13.1 L Hct 39.0 L Lymph # (Auto) 1.49 L Creatinine 1.5 H Alkaline Phosphatase 26 L Lactate Dehydrogenase C-Reactive Protein Albumin 2.1 L Globulin 4.7 H Albumin/Globulin Ratio 0.4 L Prealbumin 10.9 L Ur Random Creatinine Meds: Medications Acetaminophen (Acetaminophen 325 Mg Tablet) 650 mg PO Q6HP PRN; Protocol PRN Reason: Per Pain Protocol/Fever > 101 Last Admin: 05/13/21 20:35 Dose: 650 mg Documented by: Diphenhydramine HCl (Diphenhydramine 25 Mg Capsule) 25 mg PO HSP PRN PRN Reason: Insomnia Docusate Sodium (Docusate Sodium 100 Mg Capsule) 100 mg PO BID [facility] Last Admin: 05/16/21 20:33 Dose: Not Given Documented by: Enalaprilat (Enalaprilat 1.25 Mg/Ml Vial) 0 mg IV Q2HP PRN PRN Reason: Hypertension Enoxaparin Sodium (Enoxaparin 40 Mg/0.4 Ml Syringe) 40 mg SQ DAILY [facility] Last Admin: 05/16/21 08:47 Dose: 40 mg Documented by: Hydralazine HCl (Hydralazine 20 Mg/Ml Vial) 0 mg IV Q2HP PRN PRN Reason: Hypertension Last Admin: 05/17/21 05:13 Dose: 10 mg Documented by: Hydroxyzine HCl (Hydroxyzine 25 Mg Tablet) 50 mg PO TIDP PRN PRN Reason: anxiety Acetaminophen (Ofirmev) 650 mg in 65 mls @ 130 mls/hr IV Q6HP PRN; Protocol PRN Reason: Per Pain Protocol/Fever > 101 Ceftriaxone Sodium 2 gm/ (Dextrose) 50 mls @ 100 mls/hr IV Q24H [facility]; Protocol Last Infusion: 05/16/21 09:20 Dose: Infused Documented by: Melatonin (Melatonin 3 Mg Tablet) 3 mg PO QHS [facility] Last Admin: 05/16/21 20:33 Dose: 3 mg Documented by: Morphine Sulfate (Morphine 4 Mg/Ml Vial) 4 mg IV Q4HP PRN; Protocol PRN Reason: Per Pain Protocol Mupirocin (Mupirocin Oint 2% 22gm) 1 dose TOPICAL DAILY [facility] Last Admin: 05/16/21 08:47 Dose: 1 dose Documented by: Ondansetron HCl (Ondansetron 4 Mg/2 Ml Vial) 4 mg IV Q6HP PRN PRN Reason: Nausea And Vomiting Oxycodone HCl (Oxycodone Hcl 5 Mg Tablet) 5 mg PO Q4HP PRN; Protocol PRN Reason: Per Pain Protocol Last Admin: 05/16/21 19:36 Dose: 5 mg Documented by: Polyethylene Glycol (Polyethylene Glycol 3350 17 Gm Packet) 17 gm PO DAILYP PRN PRN Reason: Constipation Last Admin: 05/15/21 13:06 Dose: 17 gm Documented by: Senna (Sennosides 1 Tablet) 2 tab PO HS [facility] Last Admin: 05/16/21 20:33 Dose: Not Given Documented by: Sodium Chloride (0.9 % Sodium Chloride 10 Ml Syringe) 10 ml IV Q8 [facility] Last Admin: 05/17/21 05:14 Dose: 10 ml Documented by: Zolpidem Tartrate (Zolpidem 5 Mg Tablet) 5 mg PO HSP PRN PRN Reason: Insomnia Last Admin: 05/16/21 20:33 Dose: 5 mg Documented by: A/P Narrative A/P Narrative: Assessment and Plans: # Ulcers b/l feet failed outpatient oral antibiotics (Clindamycin and Keflex): s/p I&D (05/13) -WC growing Strep/Proteus #Obese: #CKD III: #pre-diabetes: A1c 6.0 P: -cont rocephin likely to Augmentin -Dr. Randolph following with wound care team -[facility] -ppx: lovenox Time Spent With Patient Time: Total time spent is greater than 50% in coordination of care (as documented) at patient's floor/unit and/or counseling patient:
[2021-05-17] MEDS: cefTRIAXone 2 GM in DEXTROSE 5% IN WATER 50 ML IV SCH (09:23)
[2021-05-17] MEDS: MUPIROCIN OINT 2% 22GM TOPICAL SCH (09:23)
[2021-05-17] MEDS: DOCUSATE SODIUM 100 MG CAPSULE PO SCH ×2 (09:24→20:54)
[2021-05-17] MEDS: oxyCODONE HCL 5 MG TABLET PO PRN (09:24)
[2021-05-17] MEDS: ENOXAPARIN 40 MG/0.4 ML SYRINGE SQ SCH (09:24)
--- NOTE | 2021-05-17 09:49 | Discharge Summary ---
Discharge Provider Provider Patient information: Note initiated : 05/17/21 at 9:48 am Service Date, if different from initiated Date: [] Patient: Sky Rivas 70 y/o M admitted on 05/12/21 for cellulitis/foot ulcer. Chief Complaint: [] Date of admission: 05/12/21 19:42 Discharge date: 05/19/21 Primary care physician: Nicolás Walker Consults: 05/12/21 Consult to Physician [CONS] Stat Comment: Consulting Provider: Jim Randolph Reason For Exam: Physician to Consult Consult to Physician [CONS] Stat Comment: Consulting Provider: Wenceslao Trevizo Reason For Exam: Physician to Consult 05/13/21 11:58 Consult to Physician [CONS] Routine Comment: antibiotic sports management intern Provider: Andreas Hogue Reason For Exam: Physician to Consult Discharge Meds Discharge Medications Home Medications amlodipine 5 mg PO DAILY #30 tab 05/17/21 [Rx Last Taken Unknown] amoxicillin-pot clavulanate [Augmentin] 1 tab PO BID #8 tab 05/17/21 [Rx Last Taken Unknown] oxycodone 5 mg PO Q4HP PRN #20 tab 05/19/21 [Rx Last Taken Unknown] COURSE Hospital Course Hospital course: Interval history: History of present illness: Mr. Rivas is a 70 year old M medical history presenting with bilateral feet ulcer. He stated he has chronic feet ulcer per day progressively get worse over the past couple of days. He was being prescribed of oral antibiotics 2 weeks ago Keflex and clindamycin. His right asked him to come to the ER today for further evaluations due to none improving nature of his episode. He denies having any pain in his feet. He denies having any fever or chills. He denies any general body weakness. He denies any other systemic symptoms. Vital signs at ER presentation within normal omits. Labs were also largely within normal limits. Bilateral feet x- ray showing soft tissue swelling with no signs of osteomyelitis. 05/13: Afebrile overnight. Blood and wound culture no growth to date. Patient denies any fever or chills. Patient denies any feet pain. Patient otherwise has no other complaints. There was no other major overnight events. 05/14 Patient a bit anxious and worried about his feet. Did not sleep last night because of the anxiety. Had debridement of feet yesterday. 05/15 Patient seems a little depressed. Had poor sleep last night because of interruptions. No other overnight event or new complaints. Wound cultures growing Streptococcus and Proteus. 05/16 Patient says he slept a little bit better last night. No new complaints overnight events. Awaiting placement for likely Tuesday. Continue wound care treatments. 05/17 No changes. Patient sleeping comfortably. Awakens. Likely discharge on Tuesday. 05/18 Sounds like instead of home with home health patient may be discharging to residential facility. Patient states he may be slept little bit better. On Rocephin will transition to augmentin. 05/19 Night event or new complaints. Awaiting placement. A/P Narrative: Assessment and Plans: # Ulcers b/l feet failed outpatient oral antibiotics (Clindamycin and Keflex): s/p I&D (05/13) -WC growing Strep/Proteus #Peripheral Neuropathy: #HTN: #Obese: #CKD III: #pre-diabetes: A1c 6.0 #h/o etoh abuse with suspicions for early cirrhosis per old notes/imaging: Discharge diagnosis: Lower extremity neuropathy with bilateral ulcers and infection Secondary discharge diagnosis: Full neuropathy hypertension obesity chronic kidney disease prediabetes Time Spent with Patient Time attestation: Total time spent providing and/or coordinating discharge services: Time spent: Greater than 30 minutes EXAM Constitutional Vitals: Temp Pulse Resp BP Pulse Ox 98.6 F 84 16 150/92 94 05/17/21 08:00 05/17/21 08:00 05/17/21 08:00 05/17/21 08:00 05/17/21 08:00 Discharge Data Data Completed and Pending Labs on day of discharge: Labs from last 24 hours 05/15/21 05/15/21 09:40 09:40 Ur Random Creatinine 29.0 L Ur Random Sodium 103 Preliminary micro results at discharge 05/12/21 21:39 Blood Culture - Preliminary Blood 05/12/21 21:23 Blood Culture - Preliminary Blood 05/12/21 11:12 Gram Stain - Preliminary Wound - Not Given Anaerobic Culture - Preliminary 05/12/21 11:13 Anaerobic Culture - Preliminary Wound - Not Given Discharge Plan Patient/Caregiver Discharge Instructions Activity: increase activity as tolerated Diet: Regular Diet Prescriptions: New amlodipine 5 mg Tablet 5 mg PO DAILY Qty: 30 RF: 0 amoxicillin-pot clavulanate [Augmentin] 875-125 mg tablet 1 tab PO BID Qty: 8 RF: 0 oxycodone 5 mg Tablet 5 mg PO Q4HP PRN (Reason: Per Pain Protocol) Qty: 20 RF: 0 Other Ambulatory Orders: Wound Care Instructions (CONT) Location: None Selected Ordered By: Jim Randolph Follow Up Plan Follow up with: Jim Randolph MD [Physician] - Emmanuel Gonzalez [Physician] - Nicolás Walker MD [Primary Care Provider] - Patient Disposition: Xfer SNF Prognosis: Fair Rehab Potential: Fair I certify that the patient requires SNF services: Yes Overall status at discharge: patient is progressing back to baseline Discharge Orders: Discharge Order (Routine); Ordered 05/19/21 Ordered By: Sam Mallory
[2021-05-17] MEDS: amLODIPine 5 MG TABLET PO SCH (12:51)
[2021-05-17] MEDS: MELATONIN 3 MG TABLET PO SCH (20:54)
[2021-05-17] MEDS: ACETAMINOPHEN 325 MG TABLET PO PRN (20:54)
[2021-05-17] MEDS: SENNOSIDES 1 TABLET PO SCH (20:55)
[2021-05-18] MEDS: ZOLPIDEM 5 MG TABLET PO PRN ×2 (00:55→20:32)
[2021-05-18] MEDS: 0.9 % SODIUM CHLORIDE 10 ML SYRINGE IV SCH ×3 (05:28→20:32)
[2021-05-18] MEDS: MUPIROCIN OINT 2% 22GM TOPICAL SCH ×2 (09:00→20:32)
--- NOTE | 2021-05-18 10:08 | Internal Med Progress Note ---
SUBJECTIVE Subjective Patient information: Note initiated : 05/18/21 at 10:04 am Service Date, if different from initiated Date: [] Patient: Sky Rivas 70 y/o M admitted on 05/12/21 for cellulitis/foot ulcer. Chief Complaint: [] Interval history: History of present illness: Mr. Rivas is a 70 year old M medical history presenting with bilateral feet ulcer. He stated he has chronic feet ulcer per day progressively get worse over the past couple of days. He was being prescribed of oral antibiotics 2 weeks ago Keflex and clindamycin. His right asked him to come to the ER today for further evaluations due to none improving nature of his episode. He denies having any pain in his feet. He denies having any fever or chills. He denies any general body weakness. He denies any other systemic symptoms. Vital signs at ER presentation within normal omits. Labs were also largely within normal limits. Bilateral feet x- ray showing soft tissue swelling with no signs of osteomyelitis. 05/13: Afebrile overnight. Blood and wound culture no growth to date. Patient denies any fever or chills. Patient denies any feet pain. Patient otherwise has no other complaints. There was no other major overnight events. 05/14 Patient a bit anxious and worried about his feet. Did not sleep last night because of the anxiety. Had debridement of feet yesterday. 05/15 Patient seems a little depressed. Had poor sleep last night because of inte rruptions. No other overnight event or new complaints. Wound cultures growing Streptococcus and Proteus. 05/16 Patient says he slept a little bit better last night. No new complaints overnight events. Awaiting placement for likely Tuesday. Continue wound care treatments. 05/17 No changes. Patient sleeping comfortably. Awakens. Likely discharge on Tuesday. 05/18 Sounds like instead of home with home health [facility] Patient states he may be slept little bit better. On Rocephin will transition to augmentin. Review of Systems: denies headache/fever/chills/nausea/vomiting/chest or abdominal pain/cough/dyspnea/diarrhea. Otherwise see above. Constitutional Vitals: Vital Signs Temp Pulse Resp BP Pulse Ox 98.9 F 93 H 18 136/78 92 05/18/21 05:00 05/17/21 16:00 05/18/21 05:00 05/18/21 05:00 05/18/21 05:00 Period Temp Pulse Resp BP Sys/Barry Pulse Ox Last 24 Hr 97.8 F-99.6 F 64-93 18-18 102-144/62-93 92-95 Intake and Output 05/17/21 05/18/21 05/18/21 21:59 05:59 13:59 Intake Total 480 960 Output Total 650 675 Balance -170 285 Intake & Output: Intake & Output 05/17/21 05/18/21 05/18/21 21:59 05:59 13:59 Intake Total 480 960 Output Total 650 675 Balance -170 285 Intake: Oral 480 960 Output: Void Amount 650 675 Other: Meal Dinner Percent of Meal Consumed 100% Feeding Ability Independent Urine Appearance Clear Clear Urine Color Dark Yellow Bright Yellow Urine Odor Normal Normal Stool Size Moderate Stool Color Brown Stool Consistency Soft # Bowel Movements 1 Exam: General: Alert, Awake, No acute Distress, obese Eyes/N/T: EOMI, Head/Neck: neck supple, CV: RRR, No murmurs, Pulm: Clear b/l, no wheezing/rhonchi/rales Abd: soft, nontender, +BS x4 Ext: no clubbing/cyanosis, b/l feet in dressings Neuro: Alert, no focal deficits, moves all extremities, Skin: warm/dry OBJ DATA Labs CBC & Chem 7: 05/15/21 04:56 05/16/21 05:04 Labs: Abnormal Lab Results 05/16/21 05/15/21 05:04 09:40 Creatinine 1.4 H Ur Random Creatinine 29.0 L Meds: Medications Acetaminophen (Acetaminophen 325 Mg Tablet) 650 mg PO Q6HP PRN; Protocol PRN Reason: Per Pain Protocol/Fever > 101 Last Admin: 05/17/21 20:54 Dose: 650 mg Documented by: Amlodipine Besylate (Amlodipine 5 Mg Tablet) 5 mg PO DAILY [facility] Last Admin: 05/17/21 12:51 Dose: 5 mg Documented by: Diphenhydramine HCl (Diphenhydramine 25 Mg Capsule) 25 mg PO HSP PRN PRN Reason: Insomnia Last Admin: 05/17/21 21:39 Dose: 25 mg Documented by: Docusate Sodium (Docusate Sodium 100 Mg Capsule) 100 mg PO BID [facility] Last Admin: 05/17/21 20:54 Dose: Not Given Documented by: Enalaprilat (Enalaprilat 1.25 Mg/Ml Vial) 0 mg IV Q2HP PRN PRN Reason: Hypertension Enoxaparin Sodium (Enoxaparin 40 Mg/0.4 Ml Syringe) 40 mg SQ DAILY [facility] Last Admin: 05/17/21 09:24 Dose: 40 mg Documented by: Hydralazine HCl (Hydralazine 20 Mg/Ml Vial) 0 mg IV Q2HP PRN PRN Reason: Hypertension Last Admin: 05/17/21 09:23 Dose: 10 mg Documented by: Hydroxyzine HCl (Hydroxyzine 25 Mg Tablet) 50 mg PO TIDP PRN PRN Reason: anxiety Acetaminophen (Ofirmev) 650 mg in 65 mls @ 130 mls/hr IV Q6HP PRN; Protocol PRN Reason: Per Pain Protocol/Fever > 101 Ceftriaxone Sodium 2 gm/ (Dextrose) 50 mls @ 100 mls/hr IV Q24H [facility]; Protocol Last Infusion: 05/17/21 09:55 Dose: Infused Documented by: Melatonin (Melatonin 3 Mg Tablet) 3 mg PO QHS [facility] Last Admin: 05/17/21 20:54 Dose: 3 mg Documented by: Morphine Sulfate (Morphine 4 Mg/Ml Vial) 4 mg IV Q4HP PRN; Protocol PRN Reason: Per Pain Protocol Mupirocin (Mupirocin Oint 2% 22gm) 1 dose TOPICAL DAILY [facility] Last Admin: 05/17/21 09:23 Dose: 1 dose Documented by: Ondansetron HCl (Ondansetron 4 Mg/2 Ml Vial) 4 mg IV Q6HP PRN PRN Reason: Nausea And Vomiting Oxycodone HCl (Oxycodone Hcl 5 Mg Tablet) 5 mg PO Q4HP PRN; Protocol PRN Reason: Per Pain Protocol Last Admin: 05/17/21 09:24 Dose: 5 mg Documented by: Polyethylene Glycol (Polyethylene Glycol 3350 17 Gm Packet) 17 gm PO DAILYP PRN PRN Reason: Constipation Last Admin: 05/15/21 13:06 Dose: 17 gm Documented by: Senna (Sennosides 1 Tablet) 2 tab PO [facility] Last Admin: 05/17/21 20:55 Dose: Not Given Documented by: Sodium Chloride (0.9 % Sodium Chloride 10 Ml Syringe) 10 ml IV Q8 [facility] Last Admin: 05/18/21 05:28 Dose: 10 ml Documented by: Zolpidem Tartrate (Zolpidem 5 Mg Tablet) 5 mg PO HSP PRN PRN Reason: Insomnia Last Admin: 05/18/21 00:55 Dose: 5 mg Documented by: A/P Narrative A/P Narrative: Assessment and Plans: # Ulcers b/l feet failed outpatient oral antibiotics (Clindamycin and Keflex): s/p I&D (05/13) -WC growing Strep/Proteus #Peripheral Neuropathy: #HTN: not on meds at home, but HTN listed in old notes #Obese: #CKD III: #pre-diabetes: A1c 6.0 #h/o etoh abuse with suspicions for early cirrhosis per old notes/imaging: P: -rocephin to Augmentin -Dr. Randolph following with wound care team -[facility] -started norvasc -CM for C vs SNF -ppx: lovenox Time Spent With Patient Time: Total time spent is greater than 50% in coordination of care (as documented) at patient's floor/unit and/or counseling patient:
[2021-05-18 10:15] LABS: Vancomycin,Random 11.7 ug/mL
[2021-05-18] MEDS: amLODIPine 5 MG TABLET PO SCH (10:44)
[2021-05-18] MEDS: DOCUSATE SODIUM 100 MG CAPSULE PO SCH ×2 (10:44→19:47)
[2021-05-18] MEDS: ENOXAPARIN 40 MG/0.4 ML SYRINGE SQ SCH (10:44)
[2021-05-18] MEDS: oxyCODONE HCL 5 MG TABLET PO PRN ×2 (10:44→20:32)
[2021-05-18] MEDS: cefTRIAXone 2 GM in DEXTROSE 5% IN WATER 50 ML IV SCH (10:45)
--- NOTE | 2021-05-18 13:26 | General Surgery Progress Note ---
SUBJECTIVE Subjective Patient information: Note initiated : 05/18/21 at 1:23 pm Service Date, if different from initiated Date: [] Patient: Sky Rivas 70 y/o M admitted on 05/12/21 for cellulitis/foot ulcer. Chief Complaint: [] Additional PMFSH (Level 3 Only): Patient seen along with [employer] bilingual research interviewer Nurse, Kerry TOVAR / NANCY. Patient's sister Che and her ( RAND of patient ) were present in room Bedside case conference, regarding discharge planning. Constitutional Vitals: Vital Signs Temp Pulse Resp BP Pulse Ox 98.9 F 93 H 18 136/78 92 05/18/21 05:00 05/17/21 16:00 05/18/21 05:00 05/18/21 05:00 05/18/21 05:00 Period Temp Pulse Resp BP Sys/Barry Pulse Ox Last 24 Hr 97.8 F-99.6 F 93-93 18-18 102-144/62-93 92-94 Intake and Output 05/17/21 05/18/21 05/18/21 21:59 05:59 13:59 Intake Total 480 960 Output Total 650 675 Balance -170 285 Intake & Output: Intake & Output 05/17/21 05/18/21 05/18/21 21:59 05:59 13:59 Intake Total 480 960 Output Total 650 675 Balance -170 285 Intake: Oral 480 960 Output: Void Amount 650 675 Other: Meal Dinner Percent of Meal Consumed 100% Feeding Ability Independent Urine Appearance Clear Clear Urine Color Dark Yellow Bright Yellow Urine Odor Normal Normal Stool Size Moderate Stool Color Brown Stool Consistency Soft # Bowel Movements 1 Exam: AVSS. No changes in VIOLETA. Patient is responding well to local w/c Now on PO antibiotics Getting Physical Therapy ROM in bed. OOB WB ambulating to BR A/P Narrative A/P Narrative: Assessment: Post surgical wounds RIGHT and LEFT foot. Peripheral neuropathy. Malnutrition ( Hypoproteinemia ) Plan: Patient awaits placement in REHAB.. Ongoing wound care and Physical therapy. Will continue out patient f/u Await nutritional improvement. Patient will need elective surgery later. Repeat debridement and skin grafting Right foot Time Spent With Patient Time: Total time spent is greater than 50% in coordination of care (as documented) at patient's floor/unit and/or counseling patient: Total time spent with greater than 50% in coordination of care (as documented) at patient's floor/unit and/or counseling patient:: 25 - 35 minutes
[2021-05-18] MEDS: AMOXICILLIN/POTASSIUM CLAV 875 MG TABLET PO SCH (18:12)
[2021-05-18] MEDS: MELATONIN 3 MG TABLET PO SCH (20:32)
[2021-05-18] MEDS: SENNOSIDES 1 TABLET PO SCH (23:05)
[2021-05-19] MEDS: 0.9 % SODIUM CHLORIDE 10 ML SYRINGE IV SCH (05:11)
[2021-05-19] MEDS: DOCUSATE SODIUM 100 MG CAPSULE PO SCH (10:12)
[2021-05-19] MEDS: amLODIPine 5 MG TABLET PO SCH (10:12)
[2021-05-19] MEDS: ENOXAPARIN 40 MG/0.4 ML SYRINGE SQ SCH (10:12)
[2021-05-19] MEDS: AMOXICILLIN/POTASSIUM CLAV 875 MG TABLET PO SCH (10:12)
[2021-05-19] MEDS: MUPIROCIN OINT 2% 22GM TOPICAL SCH (10:19)
== END 2021-05-19 10:55 | DRG 579 ==
LOC: ED 15:05 → ICU 19:42
PROVIDERS: ADMIT Internal Medicine; ATTEND Internal Medicine

== ENCOUNTER 2021-12-06 18:31 | Inpatient (IN) ==
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
--- NOTE | 2021-12-06 19:34 | XRay Report ---
CLINICAL INFORMATION: Trauma COMPARISON: None FINDINGS: No fracture or other osseous abnormality. Severe patellofemoral and tibiofemoral degeneration noted. Small amount of calcification seen the patellar ligament insertion on the inferior patella. Soft tissues are unremarkable. IMPRESSION: No fracture. Severe patellofemoral and tibiofemoral degeneration Interpreted and Authenticated by: Kam Gardner 12/06/21
--- NOTE | 2021-12-06 19:37 | XRay Report ---
CLINICAL INFORMATION: Trauma COMPARISON: None. FINDINGS: No acute fracture identified. Malunified old fracture of the medial malleolus tip noted. Moderate spurring posterior tibial plafond may predispose to posterior impingement on ankle plantar flexion. An 8 mm radiolucent lesion seen in the posterior calcaneus is likely a cyst or other benign entity. There is marked periarticular soft tissue swelling particularly medially. There is focal calcification in the distal Achilles tendon which also shows diffuse swelling. IMPRESSION: 1. No acute fracture. 2. A malunified old fracture of the medial malleolus tip 3. Marked periarticular soft issue swelling most prominent medially medially. 4. Calcification in the distal Achilles tendon which could indicate stigmata of old inflammation or healed rupture. 5. Posterior tibial plafond spurring predisposing to posterior impingement on ankle plantar flexion. Interpreted and Authenticated by: Kam Gardner 12/06/21
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
[2021-12-06] MEDS ORDERED: SULFAMETHOXAZOLE/TRIMETHOPRIM 1 TABLET PO ONE (23:26)
[2021-12-06] MEDS ORDERED: HYDROcodone/APAP 5/325MG TABLET PO ONE (23:30)
[2021-12-07 00:53] LABS: Uric Acid,Synovial Fluid 4.2 mg/dL (0.0-6.0)
[2021-12-07 01:28] LABS: Appearance,Synovial Fluid Cloudy; Color,Synovial Fluid Red; Lymphocytes,Synovial Fluid 8 %; Neutrophils,Synovial Fluid 86 % (0-25); Nucleated Cells,Synovial Fld 43378 /cumm; Other Cells,Synovial Fluid 6 %
[2021-12-07 01:32] LABS: Crystals,Body Fluid None Seen (None Seen)
[2021-12-07] MEDS ORDERED: ceFAZolin 1 GM VIAL IV ONE (02:34)
[2021-12-07] MEDS: 0.9 % SODIUM CHLORIDE 1,000 ML IV SCH ×2 (03:17→14:51)
--- NOTE | 2021-12-07 03:23 | Emergency Department Note ---
HPI General Chief complaint: Extremity Injury, Lower Stated complaint: knee pain Time Seen by Provider: 12/06/21 18:33 Source: patient and family (Sister who is a chiropractor. Patient has been living with her for the last 2 years.) Mode of arrival: wheelchair Limitations: other (Seems to be some cognitive decline limiting information transmission.) History of Present Illness HPI Narrative: Narrative: Please see note from Dr. Alba who is seen the patient and signed the patient out to me. In brief 71-year-old male brought in by sister because of pain in the right knee. Patient has a history of following couple of days ago and now has swelling in the right knee. In the ED x-ray of the right knee was obtained which did not reveal any fracture. The sister then discussed pus drainage from the left foot. Evaluation revealed pus draining and a culture was obtained. Patient was started on Bactrim. Elke crockett has had intermittent infections in the left foot treated by Dr. Burden. It had stopped draining and now it has restarted. After obtaining cultures and starting antibiotics the sister then discussed that the right knee was warm and tender. There was significant edema in the right lower extremity. A ultrasound duplex right lower extremity veins was performed which revealed no deep venous thrombosis in the right lower extremity. pain with range of motion. Aspiration was then performed which was noted to have approximately 43,000 cells of which 86% were neutrophils. This raised the concern for possible septic right knee. Blood culture was obtained along with a lactic acid level CBC CMP and the patient was started on Ancef 2 g IV. Related Data Previous Rx's Medication Instructions Recorded amlodipine 5 mg tablet 5 mg PO DAILY #30 tab 05/17/21 oxycodone 5 mg tablet 5 mg PO Q4HP PRN #20 tab 05/19/21 Allergies Allergy/AdvReac Type Severity Reaction Status Date / Time clindamycin Allergy Mild Rash Verified 12/06/21 18:36 Review of Systems ROS ROS Narrative: Narrative: Limitations: ROS unobtainable due to patients medical condition (Cognitive limitation.) Constitutional: Denies fever Respiratory: Denies shortness of breath Gastrointestinal: Denies abdominal pain Musculoskeletal: Reports other (Right lower extremity significantly edematous including 4+ at the ankle. Right knee with some healing's scrapes and scabs. Pain with range of motion swelling and warmth) [facility] Narrative Patient History Narrative: Narrative: Medical/Surgical/Family History All Active Problems (Updated 12/07/21 @ 08:08 by Wes Griffin MD) Leg pain, right (Acute) Effusion of right knee (Acute) Cellulitis of foot, left (Acute) Septic joint of right knee joint (Acute) Ulcer of both feet (Acute) Social History Smoking Status: Former smoker Exam Narrative Narrative: Narrative: Well-developed elderly male lying in bed somewhat disconnected from the conversation in the room. Is missing his hearing aids and part of this could be lack of hearing those sister also reports cognitive decline in the last 2 years. Right lower extremity significantly edematous with 4+ at the ankle. Right knee with healing scab/scrape pederson. Pain with range of motion testing. Warmth. Effusion. Right foot everted. Left foot with spontaneously draining pus distally on the plantar surface. General Limitations: other (Seems to be some cognitive decline limiting information transmission.) General appearance: Present alert and in no apparent distress Head Head: Present atraumatic and normocephalic Course Consultations Consultation #1: Discussed with Dr. Scanlon. He advised that we keep the patient n.p.o. and that the patient be admitted to his service if there are no significant medical problems or to the hospitalist if the patient has cardiopulmonary medical problems. Time: 07:08 Vital Signs Vital signs: Vital Signs Temperature 98.3 F 12/06/21 18:31 Pulse Rate 100 H 12/06/21 18:31 Respiratory Rate 16 12/06/21 18:31 Blood Pressure 146/85 12/06/21 18:31 Pulse Oximetry (%) 95 12/06/21 18:31 Temperature 98.3 F 12/07/21 09:36 Pulse Rate 84 12/07/21 09:36 Respiratory Rate 16 12/07/21 09:36 Blood Pressure 146/86 12/07/21 09:36 Pulse Oximetry (%) 98 12/07/21 09:36 MDM MDM Narrative Medical decision making narrative: Narrative: Elderly male with hearing loss and cognitive decline presents to the emerge department brought in by his sister because of trauma to the right lower extremity along with swelling. Differential diagnosis includes right lower extremity fracture, right lower extremity DVT, right lower extremity cellulitis, right knee effusion, right knee septic joint, other. My colleague Dr. Alba performed a right knee aspiration of the effusion. The fluid was read and cloudy. There were 43,000 synovial nucleated cells. 86% were neutrophils. 8% were lymphs. A CBC, CMP, blood cultures, andlactic acid level are pending at this time. Patient has been given Ancef 2 g IV. Patient did receive Septra DS hours before the blood culture. White count was normal at 11 hemoglobin mildly low at 1376 neutrophils and 10 lymphs sodium low at 125 potassium normal at 3.4 chloride low at 90 with bicarb normal at 23 BUN of 19 creatinine of 0.9 with a glucose of 96. Synovial fluid analysis revealed no crystals. Uric acid level of the synovial fluid was normal at 4.2. Synovial fluid neutrophils was 86% which was high. Lymphs were 8 and other cells were 6 Case was discussed with the orthopedist Dr. Scanlon who requested that the patient be admitted to the hospital and kept n.p.o. in anticipation of surgery later today. The patient received 2 g of Ancef earlier. Patient will be admitted onto Dr. Scanlon service. Patient denies any cardiac or pulmonary disease. Had history of diabetes in the past but his blood sugars are normal at this time and he is not on any diabetic medications. Lab Data Result diagrams: 12/07/21 02:59 12/07/21 02:59 Labs: Lab Results 12/06/21 12/06/21 12/07/21 Range/Units 23:15 23:57 02:59 WBC 11.0 (4.5-11.0) K/mcL RBC 4.56 L (4.63-6.08) M/mcL Hgb 13.0 L (13.7-17.5) g/dL Hct 39.1 L (40.1-51.0) % MCV 85.7 (80.0-100.0) fL MCH 28.5 (26.0-34.0) pg MCHC 33.2 (31.0-36.0) g/dL RDW 15.2 H (11.5-14.5) % Plt Count 498 H (140-440) K/mcL MPV 8.7 (7.4-10.4) fL Neut % (Auto) 76.4 (38.0-78.0) % Lymph % (Auto) 10.0 L (15.5-49.0) % [place] % (Auto) 12.6 H (1.0-12.0) % Eos % (Auto) 0.3 (0.0-7.0) % Baso % (Auto) 0.7 (0.0-2.0) % Lymph # (Auto) 1.09 L (1.50-4.80) K/mcL [place] # (Auto) 1.38 H (0.10-0.90) K/mcL Eos # (Auto) 0.03 (0.00-0.70) K/mcL Baso # (Auto) 0.08 (0.00-0.30) K/mcL Absolute Neutrophils 8.37 H (1.80-8.00) K/mcL PT (11.9-14.5) sec INR (0.9-1.1) VBG Lactic Acid (0.5-2.0) mmol/L Sodium (133-145) mmol/L Potassium (3.3-5.1) mmol/L Chloride (96-108) mmol/L Carbon Dioxide (22-30) mmol/L Anion Gap (8.0-16.0) BUN (8-23) mg/dL Creatinine (0.7-1.2) mg/dL GFR Calculation Glucose (70-105) mg/dL Calcium (8.6-10.4) mg/dL Total Bilirubin (0.1-1.0) mg/dL AST (<40) U/L ALT (<40) U/L Alkaline Phosphatase (39-117) U/L Total Protein (5.9-8.4) gm/dL Albumin (3.2-5.2) gm/dL Globulin (2.2-3.7) gm/dL Albumin/Globulin Ratio (1.0-2.3) Fluid Source TNP Fluid Color TNP Fluid Appearance TNP Fluid RBC TNP Fluid Diff Comment TNP Fluid Tot Cell Count TNP Fluid Nucleated Cells TNP Fluid Neutrophils TNP Fluid Lymphocytes TNP Fluid Monocytes TNP Fluid Eosinophils TNP Fluid Basophils TNP Fluid Plasma Cells TNP Fld Mesothelial Cells TNP Fluid Crystals None seen (None Seen) Synovial Source Synovial Synovial Color Red Synovial Appearance Cloudy Synovial Nuc Cells [id number] /cumm Synovial Neutrophils 86 H (0-25) % Synovial Lymphocytes 8 % Synovial Other Cells 6 % Synovial Uric Acid 4.2 (0.0-6.0) mg/dL 12/07/21 12/07/21 12/07/21 Range/Units 02:59 02:59 02:59 WBC (4.5-11.0) K/mcL RBC (4.63-6.08) M/mcL Hgb (13.7-17.5) g/dL Hct (40.1-51.0) % MCV (80.0-100.0) fL MCH (26.0-34.0) pg MCHC (31.0-36.0) g/dL RDW (11.5-14.5) % Plt Count (140-440) K/mcL MPV (7.4-10.4) fL Neut % (Auto) (38.0-78.0) % Lymph % (Auto) (15.5-49.0) % [place] % (Auto) (1.0-12.0) % Eos % (Auto) (0.0-7.0) % Baso % (Auto) (0.0-2.0) % Lymph # (Auto) (1.50-4.80) K/mcL [place] # (Auto) (0.10-0.90) K/mcL Eos # (Auto) (0.00-0.70) K/mcL Baso # (Auto) (0.00-0.30) K/mcL Absolute Neutrophils (1.80-8.00) K/mcL PT 16.3 H (11.9-14.5) sec INR 1.3 H (0.9-1.1) VBG Lactic Acid 0.7 (0.5-2.0) mmol/L Sodium 125 L (133-145) mmol/L Potassium 3.4 (3.3-5.1) mmol/L Chloride 90 L (96-108) mmol/L Carbon Dioxide 23 (22-30) mmol/L Anion Gap 12.0 (8.0-16.0) BUN 19 (8-23) mg/dL Creatinine 0.9 (0.7-1.2) mg/dL GFR Calculation 87 Glucose 96 (70-105) mg/dL Calcium 8.2 L (8.6-10.4) mg/dL Total Bilirubin 1.0 (0.1-1.0) mg/dL AST 19 (<40) U/L ALT 18 (<40) U/L Alkaline Phosphatase 49 (39-117) U/L Total Protein 6.7 (5.9-8.4) gm/dL Albumin 2.2 L (3.2-5.2) gm/dL Globulin 4.5 H (2.2-3.7) gm/dL Albumin/Globulin Ratio 0.5 L (1.0-2.3) Fluid Source Fluid Color Fluid Appearance Fluid RBC Fluid Diff Comment Fluid Tot Cell Count Fluid Nucleated Cells Fluid Neutrophils Fluid Lymphocytes Fluid Monocytes Fluid Eosinophils Fluid Basophils Fluid Plasma Cells Fld Mesothelial Cells Fluid Crystals (None Seen) Synovial Source Synovial Color Synovial Appearance Synovial Nuc Cells /cumm Synovial Neutrophils (0-25) % Synovial Lymphocytes % Synovial Other Cells % Synovial Uric Acid (0.0-6.0) mg/dL ED POC Tests ED POC Tests: TOBIN - SARS Antigen Negative Discharge Plan Patient/Caregiver Discharge Instructions Pt seen by AITCHBONE BREAKER/PA only: No Clinical Impression: Leg pain, right, Effusion of right knee, Cellulitis of foot, left Septic joint of right knee joint Qualifiers: Septic arthritis organism: due to unspecified organism Qualified Code(s): M00.9 - Pyogenic arthritis, unspecified Activity: resume usual activities as tolerated Patient Disposition: Xfer As Inpt ([facility]) Condition: Fair Discharge Date/Time: 12/07/21 09:14
[2021-12-07 03:39] LABS: Basophils # (Auto) 0.08 K/mcL (0.00-0.30); Basophils % (Auto) 0.7 % (0.0-2.0); Eosinophils # (Auto) 0.03 K/mcL (0.00-0.70); Eosinophils % (Auto) 0.3 % (0.0-7.0); Hematocrit 39.1 % (40.1-51.0); Lymphocytes # (Auto) 1.09 K/mcL (1.50-4.80); Mean Cell Volume 85.7 fL (80.0-100.0); Mean Corpuscular HGB Conc 33.2 g/dL (31.0-36.0); Mean Platelet Volume 8.7 fL (7.4-10.4); Monocytes # (Auto) 1.38 K/mcL (0.10-0.90); Monocytes % (Auto) 12.6 % (1.0-12.0); Neutrophils % (Auto) 76.4 % (38.0-78.0); Platelet Count 498 K/mcL (140-440); RBC 4.56 M/mcL (4.63-6.08); Red Cell Distribution Width 15.2 % (11.5-14.5)
[2021-12-07 03:56] LABS: ALT/SGPT 18 U/L (<40); AST/SGOT 19 U/L (<40); Albumin 2.2 gm/dL (3.2-5.2); Albumin/Globulin Ratio 0.5 (1.0-2.3); Alkaline Phosphatase 49 U/L (39-117); Blood Urea Nitrogen 19 mg/dL (8-23); Calcium 8.2 mg/dL (8.6-10.4); Carbon Dioxide 23 mmol/L (22-30); Chloride 90 mmol/L (96-108); Globulin 4.5 gm/dL (2.2-3.7); Glomerular Filtration Rate 87; Glucose 96 mg/dL (70-105)
[2021-12-07] MEDS ORDERED: 0.9 % SODIUM CHLORIDE 1,000 ML IV ONE (07:21)
[2021-12-07] MEDS ORDERED: ONDANSETRON 4 MG/2 ML VIAL IV PRN ×2 (08:12→12:30)
--- NOTE | 2021-12-07 08:42 | Ultrasound Report ---
History: Pain and edema in the right leg after a recent fall FINDINGS: There is normal augmentation and compressibility in the deep veins from the groin through the calf. Doppler shows normal waveform patterns. However, there may be reflux in the greater saphenous vein. Greater saphenous is not thrombosed. There is subcutaneous edema in the lower leg. There are a couple small lymph nodes in the right groin. The largest measures 6 x 15 mm. IMPRESSION: No evidence of deep venous thrombosis Interpreted and Authenticated by: Rico Claire 12/07/21
--- NOTE | 2021-12-07 08:48 | XRay Report ---
HISTORY: Preop FINDINGS: There is an obliquely oriented band of atelectasis overlying the right lower hilum. There is a small amount of atelectasis in the lateral basal segment of the left lower lobe. These are new since the prior chest x-ray done on 06/15/21. Heart size is within normal limits but has left ventricular prominence. There is no congestive heart failure. No lung mass is seen. Aorta is mildly tortuous. There is subtle widening of the superior mediastinum on the left side, along with mild indentation of the left side of the wall of the trachea. This is unchanged from the prior chest x-ray done on 06/15/21. The possibility of a mediastinal mass was raised on the prior report. A CT scan had been recommended. IMPRESSION: Bands of atelectasis in both lung bases Mild narrowing of the trachea with possible mediastinal mass. This could be further evaluated by a chest CT with intravenous contrast Interpreted and Authenticated by: Rico Claire 12/07/21
[2021-12-07 09:09] LABS: INR 1.3 (0.9-1.1); Prothrombin Time 16.3 sec (11.9-14.5)
--- NOTE | 2021-12-07 09:49 | EKG ---
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
[2021-12-07] MEDS: DOCUSATE SODIUM 100 MG CAPSULE PO SCH ×2 (10:30→20:59)
[2021-12-07] MEDS ORDERED: DEXAMETHASONE 10 MG/ML VIAL ONE (12:10)
[2021-12-07] MEDS ORDERED: KETAMINE 50 MG/ML Syringe (ANEST) IV ONE (12:10)
[2021-12-07] MEDS ORDERED: PROPOFOL 200 MG/20 ML VIAL IV ONE (12:10)
[2021-12-07] MEDS ORDERED: fentaNYL 250 MCG/5 ML VIAL IV ONE (12:10)
[2021-12-07] MEDS ORDERED: MAGNESIUM SULFATE 2 GM/50 ML BAG IV ONE (12:10)
[2021-12-07] MEDS ORDERED: LIDOCAINE HCL/PF 100 MG/5 ML SYRINGE IV ONE (12:10)
[2021-12-07] MEDS ORDERED: GLYCOPYRROLATE 0.2 MG/ML VIAL IV ONE (12:10)
[2021-12-07] MEDS ORDERED: ONDANSETRON 4 MG/2 ML VIAL ONE (12:10)
[2021-12-07] MEDS ORDERED: ceFAZolin 2 GM in DEXTROSE 5% IN WATER 50 ML IV SCH ×2 (12:15→20:00)
[2021-12-07] MEDS ORDERED: LACTATED RINGERS 1,000 ML IV SCH (12:30)
[2021-12-07] MEDS ORDERED: ACETAMINOPHEN 1,000 MG/100 ML BAG IV ONE (12:30)
[2021-12-07] MEDS ORDERED: LABETALOL 5 MG/ML ML IV PRN (12:30)
[2021-12-07] MEDS ORDERED: METOPROLOL TARTRATE 5 MG/5 ML VIAL IV PRN (12:30)
[2021-12-07] MEDS ORDERED: BENZOCAINE/MENTHOL 1 LOZENGE PO PRN (12:30)
[2021-12-07] MEDS ORDERED: IPRATROPIUM/ALBUTEROL 3 ML AMPUL.NEB NEB PRN (12:30)
[2021-12-07] MEDS ORDERED: METHOCARBAMOL 1,000 MG/10 ML VIAL IV PRN (12:30)
[2021-12-07] MEDS ORDERED: NALOXONE HCL 0.4 MG/ML VIAL IV PRN (12:30)
[2021-12-07] MEDS ORDERED: LACTATED RINGERS 250 ML IV PRN (12:30)
--- NOTE | 2021-12-07 13:02 | Brief Operative Note ---
Brief Operative Note Date of procedure: 12/07/21 Pre-op diagnosis: right knee septic joint Post-op diagnosis: same Procedure: Right knee scope synovectomy and partial medial and lateral meniscectomy Grafts/Implants: Yes Anesthesia: GETA Complications: none Surgeon: Jovan Malhotra Business Rules Developer: Randal Velazquez Estimated blood loss (cc): 140 Tourniquet Time (Minutes): 25 Specimens Removed/Pathology: none sent Condition: stable Disposition: PACU
[2021-12-07] MEDS ORDERED: HYDROmorphone 1 MG/ML SYRINGE IV PRN (13:06)
[2021-12-07] MEDS ORDERED: HYDROcodone/APAP 10/325MG TABLET PO PRN (13:06)
[2021-12-07] MEDS ORDERED: CLINDAMYCIN 600 MG in DEXTROSE 5% IN WATER 50 ML IV SCH (13:15)
[2021-12-07] MEDS: LACTATED RINGERS 1,000 ML IV SCH (13:29)
--- NOTE | 2021-12-07 13:29 | Operative Note ---
DATE OF OPERATION: 12/07/2021 PREOPERATIVE DIAGNOSIS: Right septic knee. POSTOPERATIVE DIAGNOSIS: Right septic knee. PROCEDURE: Right knee diagnostic arthroscopy with extensive debridement, complete synovectomy as well as a partial medial and lateral meniscectomy, and drain placement. SURGEON: Jovan Malhotra M.D. STONE GANG SAWYER: Randal Velazquez PA-C. This providers expertise and technical skill were required throughout the case. The MARIFER assisted with preoperative coordination, intraoperative retraction, wound closure, and dressing and splint application, as well as postoperative documentation and care coordination. ANESTHESIA: General LMA anesthesia. COMPLICATIONS: None. TOURNIQUET TIME: Approximately 25 minutes. ESTIMATED BLOOD LOSS: About 150 mL. DESCRIPTION OF PROCEDURE: The patient was brought to the operating room, put to sleep with general LMA anesthesia. Once asleep, the patient had the right leg sterilely prepped and draped. A timeout was performed, confirming the operative site by initials, consent form, and x-rays. We exsanguinated the leg, inflated the tourniquet to 250 pounds of pressure and made two anterior portals and one superolateral outflow. Through this, a large volume of pus was expressed through the outflow. The shaver was then inserted as well as the camera. The anterior compartment showed a well tracking patella with minimal arthritis with an extensive synovitis. We performed a synovectomy in the anterior pouch and medial and lateral gutters. 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 A partial medial meniscectomy was performed using a full radius shaver. We then entered the notch. The notch revealed an intact ACL and PCL. We then entered laterally, which showed a lateral meniscus that was removed using a full radius shaver. Here again, we found arthritis, grade 4 on the femur and the tibial surface. Pictures were taken. We then flushed with copious amounts of irrigation running 6 L of irrigation through the knee and then placing a DOROTEO drain superolaterally that was inserted into the knee. A DOROTEO drain was attached. We irrigated thoroughly, closed the portals with 4-0 nylon. A sterile bandage was applied. Tourniquet was deflated at 25 minutes. RBH:alonso Job ID: [id number] Doc ID: [id number] Jovan Malhotra MD
[2021-12-07] MEDS: fentaNYL 100 MCG/2 ML VIAL IV PRN ×2 (13:34→13:36)
[2021-12-07] MEDS: 0.9 % SODIUM CHLORIDE 10 ML SYRINGE IV SCH ×4 (14:38→22:43)
[2021-12-07] MEDS: ceFAZolin 1 GM VIAL IV SCH (20:58)
[2021-12-07] MEDS ORDERED: SENNOSIDES 1 TABLET PO SCH (21:00)
[2021-12-08] MEDS: 0.9 % SODIUM CHLORIDE 10 ML SYRINGE IV SCH ×2 (03:59→04:00)
[2021-12-08] MEDS: ceFAZolin 1 GM VIAL IV SCH (03:59)
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
--- NOTE | 2021-12-08 06:56 | Orthopedic Progress Note ---
SUBJECTIVE Subjective Patient information: Note initiated : 12/08/21 at 6:55 am Service Date, if different from initiated Date: [] Patient: Sky Rivas 71 y/o M admitted on 12/07/21 for knee pain. Chief Complaint: [Pt is stable this morning on post operative day without any significant concerns or complaints. Patients vital signs have remained stable. Patients dressing is dry and is grossly intact from a neurovascular and motor standpoint. Patients 10 point ROS is otherwise negative. ] Constitutional Vitals: Vital Signs Temp Pulse Resp BP Pulse Ox 97.9 F 76 17 134/80 94 12/08/21 03:58 12/08/21 03:58 12/08/21 03:58 12/08/21 03:58 12/08/21 03:58 Period Temp Pulse Resp BP Sys/Barry Pulse Ox Last 24 Hr 97.0 F-98.9 F 76-97 - 113-152/72-90 89-99 Intake and Output 12/07/21 12/08/21 12/08/21 21:59 05:59 13:59 Intake Total 2022 325 Output Total 1000 310 Balance 1023 15 Intake & Output: Intake & Output 12/07/21 12/08/21 12/08/21 21:59 05:59 13:59 Intake Total 2022 325 Output Total 1000 310 Balance 1023 15 Intake: IV 1023 Sodium Chloride 0.9% 1,000 ml @ 273 125 mls/hr IV .Q8H PAULIE Rx#: [id number] Lactated Ringers 1,000 ml @ 50 750 mls/hr IV .Q20H PAULIE Rx#: [id number] Oral 1000 325 Output: Drainage 50 10 Right Knee DOROTEO Drain 50 10 Void Amount 950 300 Other: Meal Dinner Percent of Meal Consumed 100% Urine Appearance Clear Clear Urine Color Dark Yellow Bright Yellow Stool Size Smear Stool Color Brown Stool Consistency Dry and Hard # Voids 400 # Bowel Movements 1 Extremities Exam Extremities exam: Present normal capillary refill, normal inspection, Foot pink and warm and neurovascular intact OBJ DATA Labs CBC & Chem 7: 12/07/21 02:59 12/07/21 02:59 Labs: Abnormal Lab Results 12/07/21 12/07/21 12/07/21 02:59 02:59 02:59 RBC 4.56 L Hgb 13.0 L Hct 39.1 L RDW 15.2 H Plt Count 498 H Lymph % (Auto) 10.0 L [place] % (Auto) 12.6 H Lymph # (Auto) 1.09 L [place] # (Auto) 1.38 H Absolute Neutrophils 8.37 H PT 16.3 H INR 1.3 H Sodium 125 L Chloride 90 L Calcium 8.2 L Albumin 2.2 L Globulin 4.5 H Albumin/Globulin Ratio 0.5 L Synovial Neutrophils 12/06/21 23:57 RBC Hgb Hct RDW Plt Count Lymph % (Auto) [place] % (Auto) Lymph # (Auto) [place] # (Auto) Absolute Neutrophils PT INR Sodium Chloride Calcium Albumin Globulin Albumin/Globulin Ratio Synovial Neutrophils 86 H Meds: Medications Hydrocodone Bitart/Acetaminophen (Hydrocodone/Apap 10/325mg Tablet) 1 - 2 tab PO Q4HP PRN; Protocol PRN Reason: Per Pain Protocol Docusate Sodium (Docusate Sodium 100 Mg Capsule) 100 mg PO BID [facility] Last Admin: 12/07/21 20:59 Dose: 100 mg Documented by: Hydromorphone HCl (Hydromorphone 1 Mg/Ml Syringe) 0.5 - 2 mg IV Q2HP PRN; Protocol PRN Reason: Per Pain Protocol Lactated Ringer's (Lactated Ringers) 1,000 mls @ 50 mls/hr IV .Q20H [facility] Last Infusion: 12/07/21 19:21 Dose: Infused Documented by: Ondansetron HCl (Ondansetron 4 Mg/2 Ml Vial) 4 mg IV Q6HP PRN PRN Reason: Nausea And Vomiting Senna (Sennosides 1 Tablet) 2 tab PO HS [facility] Last Admin: 12/07/21 20:59 Dose: 2 tab Documented by: Sodium Chloride (0.9 % Sodium Chloride 10 Ml Syringe) 10 ml IV Q8 [facility] Last Admin: 12/08/21 03:59 Dose: 10 ml Documented by: Sodium Chloride (0.9 % Sodium Chloride 10 Ml Syringe) 10 ml IV Q8 [facility] Last Admin: 12/08/21 04:00 Dose: Not Given Documented by: A/P Narrative A/P Narrative: The patient has been educated regarding dressing care, , restrictions, and follow up appointments. The patient has had all necessary DME prescribed. The patient has remained relatively stable during their hospital course. Time Spent With Patient Time: Total time spent is greater than 50% in coordination of care (as documented) at patient's floor/unit and/or counseling patient: Critical Care Time: No
[2021-12-08] MEDS: DOCUSATE SODIUM 100 MG CAPSULE PO SCH (08:29)
[2021-12-08] MEDS: LACTATED RINGERS 1,000 ML IV SCH (11:29)
== END 2021-12-08 13:00 | DRG 486 ==
LOC: ED 18:31 → MEDSUR 12-07 09:14
PROVIDERS: ADMIT Orthopaedic Surgery; ATTEND Orthopaedic Surgery